=== PATIENT | male | born 1950 | race Caucasian/White ===

== ENCOUNTER 2020-02-07 15:29 | Inpatient (IN) | payer MEDICARE, OTHER ==
--- NOTE | 2020-02-07 17:44 | ED ---
General Adult HPI - General Chief complaint: Recheck/Abnormal Lab/Rx Stated complaint: swollen testicles Time Seen by Provider: 02/07/20 16:47 Source: patient Mode of arrival: wheelchair Limitations: no limitations - History of Present Illness Initial comments: Dictation was produced using [employer] dictation software. please excuse any grammatical, word or spelling errors. Chief Complaint: 69-year-old male past medical history of COPD, peripheral vascular disease and hyperlipidemia presents with swollen body. History of Present Illness: [age]old male who says for the last 2 weeks she's been having increased swelling to his legs and testicles. Patient also complains of shortness of breath. He states that he is having difficulties performing his daily activities. Patient does have a history of heart failure and COPD. Patient continues to smoke. Has history of left below-knee amputation. She also complains of some difficulties urinating. He states he has to push whenever he urinates. He feels like he is not emptying his bladder completely. The ROS documented in this emergency department record has been reviewed and confirmed by me. Those systems with pertinent positive or negative responses have been documented in the HPI. All other systems are other negative and/or noncontributory. PHYSICAL EXAM: General Impression: Alert and oriented x3, this neck HEENT: Normocephalic atraumatic, extra-ocular movements intact, pupils equal and reactive to light bilaterally, mucous membranes moist. Cardiovascular: Heart regular rate and rhythm, S1&S2 audible, no murmurs, rubs or gallops Chest: Lungs clear to auscultation bilaterally, no rhonchi, no wheeze, no rales Abdomen: Bowel sounds present, abdomen soft, non-tender, non-distended, no organomegaly, positive fluid wave Musculoskeletal: Pulses present and equal in all extremities, significant pitting edema of his right and left lower extremity, swelling to the testicles Motor: no focal deficits noted Neurological: CN II-XII grossly intact, no focal motor or sensory deficits noted Skin: Intact with no visualized rashes : Pitting edema to the testicles and penis Psych: Normal affect and mood ED course: 69-year-old male with clinical presentation consistent with heart failure exacerbation. Patient also has symptoms of urinary retention. Patient has high post-void residual. All signs upon arrival shows hypoxia 90% on room air, rest of vital signs within acceptable limits. Laboratory evaluation obtained. CBC within acceptable limits Panel unremarkable. Metabolic panel shows mild gap acidosis creatinine 2.76 with a P1 of 29. Urinalysis is likely secondary to post renal azotemia. Dixon catheter was placed by urology Dr. Hameed. Given that there was some concern of ecchymosis.. There is also findings of heart failure with prematurity peptide of 17,200. There is slight troponin elevation 0.016. Urinalysis shows 13 white blood cells. Discussed patient case with Dr. Fong is willing to accept patient's care. Given the patient has some respiratory symptoms she requested patient given Lasix despite the renal markers. She will is renal markers while admitted inpatient. Checks x-ray shows slight pleural effusion in the left hemithorax. - Related Data Home Medications Medication Instructions Recorded Confirmed Atorvastatin [Lipitor] 40 mg PO HS 01/01/15 07/05/16 Cholecalciferol [Vitamin D3] 2,000 unit PO DAILY 01/01/15 07/05/16 Clopidogrel [Plavix] 75 mg PO DAILY 01/01/15 07/05/16 Gabapentin [Neurontin] 200 mg PO QAM 01/01/15 07/05/16 HYDROcodone/APAP 10-325MG [[place] 1 each PO QID PRN 01/01/15 07/05/16 10] Lisinopril [Prinivil] 20 mg PO QAM 01/01/15 07/05/16 ALPRAZolam [Xanax] 1 mg PO BID PRN 11/25/15 07/05/16 Ibuprofen [Motrin] 600 mg PO DIRECTED PRN 02/09/16 07/05/16 Albuterol Sulfate [Proair Hfa] 1 - 2 puff INHALATION Q6HR PRN 03/08/16 07/05/16 Multivitamins, Thera [Multivitamin] 1 tab PO DAILY 03/08/16 07/05/16 Aspirin 81 mg PO DAILY 05/17/16 07/05/16 Cilostazol [Pletal] 50 mg PO BID 05/17/16 07/05/16 Metoprolol Succinate [Toprol XL] 50 mg PO DAILY 05/17/16 07/05/16 Allergies Allergy/AdvReac Type Severity Reaction Status Date / Time No Known Allergies Allergy Verified 02/07/20 15:57 Review of Systems ROS Statement: Those systems with pertinent positive or pertinent negative responses have been documented in the HPI. ROS Other: All systems not noted in ROS Statement are negative. Past Medical History Past Medical History: COPD, Hyperlipidemia, Hypertension, Vascular Disorder Additional Past Medical History / Comment(s): LT. BKA, LEFT STUMP WOUND, HYPERBARIC OXYGEN TX (X 2) WHICH CAUSED HEARING PROBLEMS- DENIES HEARING PROBLEMS NOW, HAS HAD TINNITUS FOR 20 YEARS. , PT USES W/C & WALKER. History of Any Multi-Drug Resistant Organisms: None Reported Additional Past Surgical History / Comment(s): lt leg vascular bypass surgery; L below knee amp and then revision of left bka., hx of PICC line. Past Anesthesia/Blood Transfusion Reactions: No Reported Reaction Past Psychological History: Anxiety, Depression Smoking Status: Current every day smoker Past Alcohol Use History: Daily Past Drug Use History: None Reported - Past Family History Father Family Medical History: Coronary Artery Disease (CAD) Additional Family Medical History / Comment(s): heart disease age 47 Mother Family Medical History: Hypertension Additional Family Medical History / Comment(s): still living age 82 relatively good health General Exam Limitations: no limitations Course Vital Signs 02/07/20 15:57 Temperature 97.4 F L Pulse Rate 59 L Respiratory 18 Rate Blood Pressure 122/66 O2 Sat by Pulse 90 L Oximetry Medical Decision Making - Lab Data Result diagrams: 02/07/20 17:32 02/07/20 17:32 Lab Results 02/07/20 02/07/20 02/07/20 Range/Units 17:32 17:32 17:32 WBC 8.0 (3.8-10.6) k/uL RBC 2.99 L (4.30-5.90) m/uL Hgb 8.6 L (13.0-17.5) gm/dL Hct 28.4 L (39.0-53.0) % MCV 94.9 (80.0-100.0) fL MCH 28.8 (25.0-35.0) pg MCHC 30.3 L (31.0-37.0) g/dL RDW 15.1 (11.5-15.5) % Plt Count 365 (150-450) k/uL Neutrophils % 78 % Lymphocytes % 10 % Monocytes % 8 % Eosinophils % 2 % Basophils % 0 % Neutrophils # 6.2 (1.3-7.7) k/uL Lymphocytes # 0.8 L (1.0-4.8) k/uL Monocytes # 0.6 (0-1.0) k/uL Eosinophils # 0.2 (0-0.7) k/uL Basophils # 0.0 (0-0.2) k/uL Hypochromasia Marked Poikilocytosis Slight PT 10.7 (9.0-12.0) sec INR 1.0 (<1.2) APTT 23.8 (22.0-30.0) sec Sodium (137-145) mmol/L Potassium (3.5-5.1) mmol/L Chloride (98-107) mmol/L Carbon Dioxide (22-30) mmol/L Anion Gap mmol/L BUN (9-20) mg/dL Creatinine (0.66-1.25) mg/dL Est GFR (CKD-EPI)AfAm (>60 ml/min/1.73 sqM) Est GFR (CKD-EPI)NonAf (>60 ml/min/1.73 sqM) Glucose (74-99) mg/dL Calcium (8.4-10.2) mg/dL Troponin I (0.000-0.034) ng/mL NT-Pro-B Natriuret Pep pg/mL Urine Color Light Yellow Urine Appearance Clear (Clear) Urine pH 5.5 (5.0-8.0) Ur Specific [place] 1.012 (1.001-1.035) Urine Protein Trace H (Negative) Urine Glucose (UA) Negative (Negative) Urine Ketones Negative (Negative) Urine Blood Negative (Negative) Urine Nitrite Negative (Negative) Urine Bilirubin Negative (Negative) Urine Urobilinogen <2.0 (<2.0) mg/dL Ur Leukocyte Esterase Moderate H (Negative) Urine RBC 2 (0-5) /hpf Urine WBC 13 H (0-5) /hpf Ur Squamous Epith Cells 1 (0-4) /hpf Urine Bacteria Rare H (None) /hpf Hyaline Casts 3 H (0-2) /lpf Urine Mucus Rare H (None) /hpf 02/07/20 02/07/20 02/07/20 Range/Units 17:32 17:32 17:32 WBC (3.8-10.6) k/uL RBC (4.30-5.90) m/uL Hgb (13.0-17.5) gm/dL Hct (39.0-53.0) % MCV (80.0-100.0) fL MCH (25.0-35.0) pg MCHC (31.0-37.0) g/dL RDW (11.5-15.5) % Plt Count (150-450) k/uL Neutrophils % % Lymphocytes % % Monocytes % % Eosinophils % % Basophils % % Neutrophils # (1.3-7.7) k/uL Lymphocytes # (1.0-4.8) k/uL Monocytes # (0-1.0) k/uL Eosinophils # (0-0.7) k/uL Basophils # (0-0.2) k/uL Hypochromasia Poikilocytosis PT (9.0-12.0) sec INR (<1.2) APTT (22.0-30.0) sec Sodium 140 (137-145) mmol/L Potassium 4.1 (3.5-5.1) mmol/L Chloride 110 H (98-107) mmol/L Carbon Dioxide 18 L (22-30) mmol/L Anion Gap 12 mmol/L BUN 29 H (9-20) mg/dL Creatinine 2.76 H (0.66-1.25) mg/dL Est GFR (CKD-EPI)AfAm 26 (>60 ml/min/1.73 sqM) Est GFR (CKD-EPI)NonAf 23 (>60 ml/min/1.73 sqM) Glucose 93 (74-99) mg/dL Calcium 9.2 (8.4-10.2) mg/dL Troponin I 0.016 (0.000-0.034) ng/mL NT-Pro-B Natriuret Pep 63434 pg/mL Urine Color Urine Appearance (Clear) Urine pH (5.0-8.0) Ur Specific [place] (1.001-1.035) Urine Protein (Negative) Urine Glucose (UA) (Negative) Urine Ketones (Negative) Urine Blood (Negative) Urine Nitrite (Negative) Urine Bilirubin (Negative) Urine Urobilinogen (<2.0) mg/dL Ur Leukocyte Esterase (Negative) Urine RBC (0-5) /hpf Urine WBC (0-5) /hpf Ur Squamous Epith Cells (0-4) /hpf Urine Bacteria (None) /hpf Hyaline Casts (0-2) /lpf Urine Mucus (None) /hpf Disposition Clinical Impression: Urinary retention, Acute kidney failure Disposition: ADMITTED IP TO THIS HOSP Condition: Fair Referrals: Supa Arnold MD [Primary Care Provider] - 1-2 days Decision Time: 19:06
[2020-02-07 18:02] LABS: Appearance,Urine Clear (Clear); Bacteria,Urine Rare /hpf; Bilirubin,Urine Negative (Negative); Blood,Urine Negative (Negative); Color,Urine Light Yellow; Glucose,Urine (UA) Negative (Negative); Hyaline Casts,Urine 3 /lpf (0-2); Ketones,Urine Negative (Negative); Leukocyte Esterase,Urine Moderate (Negative); Mucus,Urine Rare /hpf; Nitrite,Urine Negative (Negative); PH, Urine 5.5 (5.0-8.0); Protein,Urine Trace (Negative); RBC,Urine 2 /hpf (0-5); Specific Gravity,Urine 1.012 (1.001-1.035); Squamous Epithelial Cell,Urine 1 /hpf (0-4); Urobilinogen,Urine <2.0 mg/dL (<2.0); WBC,Urine 13 /hpf (0-5)
[2020-02-07 18:09] LABS: Partial Thromboplastin Time 23.8 sec (22.0-30.0); Prothrombin Time 10.7 sec (9.0-12.0)
[2020-02-07 18:10] LABS: Basophils % (A) 0 %; Calcium 9.2 mg/dL (8.4-10.2); Eosinophils # (A) 0.2 k/uL (0-0.7); Eosinophils % (A) 2 %; HCT 28.4 % (39.0-53.0); HGB 8.6 gm/dL (13.0-17.5); Hypochromasia Marked; Lymphocytes # (A) 0.8 k/uL (1.0-4.8); Lymphocytes % (A) 10 %; MCH 28.8 pg (25.0-35.0); MCHC 30.3 g/dL (31.0-37.0); MCV 94.9 fL (80.0-100.0); Mean Platelet Volume 7.1; Monocytes # (A) 0.6 k/uL (0-1.0); Monocytes % (A) 8 %; Neutrophils # (A) 6.2 k/uL (1.3-7.7); Neutrophils % (A) 78 %; Platelet Count 365 k/uL (150-450); Poikilocytosis Slight; Potassium 4.1 mmol/L (3.5-5.1); RBC 2.99 m/uL (4.30-5.90); RDW 15.1 % (11.5-15.5)
[2020-02-07] MEDS ORDERED: SODIUM CHLORIDE 0.9% 500 ML 500 ML IV STA (18:23)
[2020-02-07] MEDS ORDERED: FUROSEMIDE 10 MG/ML 4 ML VIAL IV STA (19:03)
[2020-02-07] MEDS ORDERED: NALOXONE 0.4 MG/ML 1 ML VIAL IV PRN (19:04)
--- NOTE | 2020-02-07 19:27 | XR ---
EXAMINATION: XR chest 2V DATE AND TIME: 02/07/2020 6:17 PM CLINICAL INDICATION: PHH; dyspnea, swollen testicles TECHNIQUE: Departmental protocol COMPARISON: None FINDINGS: The pleural spaces are positive for a moderately large left pleural effusion and a small r ight pleural effusion. The lungs are clear and well expanded, except for passive bibasilar atelectasis associated with the p leural effusions. The cardiac silhouette is borderline enlarged. The remainder of the mediastinal silhouette is unremar kable. The skeletal structures and soft tissues are negative for acute findings. IMPRESSION: 1. Moderately large left pleural effusion. 2. Small right pleural effusion
[2020-02-07] MEDS: SODIUM CHLORIDE 0.9% 1,000 ML IV SCH (19:28)
[2020-02-08] MEDS ORDERED: THIAMINE 100 MG TAB PO SCH ×2 (09:30→17:30)
[2020-02-08] MEDS: NICOTINE 14MG/24HR PATCH TRANSDERM SCH (10:02)
[2020-02-08] MEDS: HYDROcodone/APAP 10-325MG 1 EACH TAB PO PRN ×2 (10:02→19:07)
--- NOTE | 2020-02-08 10:09 | US ---
EXAMINATION TYPE: US kidneys/renal and bladder DATE OF EXAM: 02/08/2020 COMPARISON: NONE CLINICAL HISTORY: CONSUELO. No pain. Patient has bladder reynaga. Macroscopic hematuria. Exam performed portable. Patients room lights unable to turn off, pictures may appear bright and limited. EXAM MEASUREMENTS: Right Kidney: 9.5 x 4.4 x 4.9 cm Left Kidney: 9.4 x 3.8 x 4.9 cm Right Kidney: No hydronephrosis or nephrolithiasis Left Kidney: No hydronephrosis or nephrolithiasis Bladder: Reynaga seen. Limited visualization. Decompressed with bladder wall thickening likely due to the decompression. Bilateral Jets not seen due to reynaga There is no evidence for hydronephrosis at this point in time. No nephrolithiasis is seen. No marquita s are identified. The urinary bladder is nondistended due to Reynaga catheter placement. IMPRESSION: No hydronephrosis or nephrolithiasis seen. Urinary bladder is decompressed due to placeme nt of a Reynaga catheter with circumferential wall thickening that is likely due to nondistention.
--- NOTE | 2020-02-08 10:56 | P.GSCN ---
History of Present Illness Consult date: 02/07/20 Reason for Consult: Urinary retention History of present illness: Mr Rowe is 69 yo male that presents to the ED with fluid overload secondary to CHF exacerbation. Urology is consulted for urinary retention and difficulty with reynaga placement. At baseline patient denies any voiding issues. He has hx of prostate cancer currently on active surveillance. No hx of gross hematuria or dysuria. No previous episode of urinary retention. He underwent a bed side ultrasound which showed distended bladder. At this time he indicates he is not having abdominal pain secondary to bladder distension, but has not been able to void since presenting to ED . Review of Systems - Constitutional Denies chills, Denies fever, Denies weakness - EENT Ears, nose, mouth and throat: Denies dysphagia, Denies headache - Cardiovascular Reports edema, Reports leg edema, Denies chest pain - Respiratory Reports dyspnea, Denies cough - Gastrointestinal Denies abdominal pain, Denies nausea, Denies vomiting - Genitourinary Reports urinary retention, Denies dysuria, Denies flank pain, Denies kidney stones - Musculoskeletal Denies gait dysfunction, Denies low back pain - Neurological Denies confusion, Denies weakness - Psychiatric Denies confusion, Denies hallucinations - Endocrine Reports weight change Past Medical History Past Medical History: COPD, Hyperlipidemia, Hypertension, Vascular Disorder Additional Past Medical History / Comment(s): LT. BKA, LEFT STUMP WOUND, HYPERBARIC OXYGEN TX (X 2) WHICH CAUSED HEARING PROBLEMS-, HAS HAD TINNITUS FOR 20 YEARS. , PT USES W/C & WALKER. History of Any Multi-Drug Resistant Organisms: None Reported Additional Past Surgical History / Comment(s): lt leg vascular bypass surgery; L below knee amp and then revision of left bka., hx of PICC line. Past Anesthesia/Blood Transfusion Reactions: No Reported Reaction Past Psychological History: Anxiety, Depression Smoking Status: Current some day smoker Past Alcohol Use History: Daily Additional Past Alcohol Use History / Comment(s): SMOKING FOR 40 YEARS, UP TO 2PPD, QUIT FOR 6 MONTHS AND NOW SMOKES 2 CIGARETTES PER DAY. DRINKS 1-2 BEERS PER DAY. Past Drug Use History: None Reported - Past Family History Father Family Medical History: Coronary Artery Disease (CAD) Additional Family Medical History / Comment(s): heart disease age 47 Mother Family Medical History: Hypertension Additional Family Medical History / Comment(s): 4 years ago Medications and Allergies Home Medications Medication Instructions Recorded Confirmed Type Atorvastatin [Lipitor] 40 mg PO DAILY 01/01/15 02/08/20 History Cholecalciferol [Vitamin D3] 2,000 unit PO DAILY 01/01/15 02/07/20 History Gabapentin [Neurontin] 200 mg PO QAM 01/01/15 02/07/20 History HYDROcodone/APAP 10-325MG [[place] 1 tab PO QID PRN 01/01/15 02/08/20 History 10] Albuterol Sulfate [Proair Hfa] 1 - 2 puff INHALATION RT-Q6H PRN 03/08/16 02/08/20 History Multivitamins, Thera [Multivitamin] 1 tab PO DAILY 03/08/16 02/07/20 History Metoprolol Succinate [Toprol XL] 50 mg PO DAILY 05/17/16 02/07/20 History Budesonide [Pulmicort] 0.5 mg INHALATION RT-BID 02/08/20 02/08/20 History Pantoprazole [Protonix] 40 mg PO AC-BID 02/08/20 02/08/20 History Allergies Allergy/AdvReac Type Severity Reaction Status Date / Time No Known Allergies Allergy Verified 02/07/20 15:57 Surgical - Exam Vital Signs Temp Pulse Resp BP Pulse Ox 97.4 F L 59 L 18 122/66 90 L 02/07/20 15:57 02/07/20 15:57 02/07/20 15:57 02/07/20 15:57 02/07/20 15:57 - General well developed, well nourished, no distress, no pain - Eyes normal ocular movement, no pale - ENT normal mucosa, no no hearing loss - Respiratory normal expansion, normal respiratory effort - Abdomen Abdomen: soft, non tender, no distended - Psychiatric oriented to time, oriented to person, oriented to place, speech is normal Results - Labs 02/07/20 17:32 02/07/20 17:32 Abnormal Lab Results - Last 24 Hours (Table) 02/07/20 02/07/20 02/07/20 Range/Units 17:32 17:32 17:32 RBC 2.99 L (4.30-5.90) m/uL Hgb 8.6 L (13.0-17.5) gm/dL Hct 28.4 L (39.0-53.0) % MCHC 30.3 L (31.0-37.0) g/dL Lymphocytes # 0.8 L (1.0-4.8) k/uL Chloride 110 H (98-107) mmol/L Carbon Dioxide 18 L (22-30) mmol/L BUN 29 H (9-20) mg/dL Creatinine 2.76 H (0.66-1.25) mg/dL Urine Protein Trace H (Negative) Ur Leukocyte Esterase Moderate H (Negative) Urine WBC 13 H (0-5) /hpf Urine Bacteria Rare H (None) /hpf Hyaline Casts 3 H (0-2) /lpf Urine Mucus Rare H (None) /hpf Diabetes panel 02/07/20 Range/Units 17:32 Sodium 140 (137-145) mmol/L Potassium 4.1 (3.5-5.1) mmol/L Chloride 110 H (98-107) mmol/L Carbon Dioxide 18 L (22-30) mmol/L BUN 29 H (9-20) mg/dL Creatinine 2.76 H (0.66-1.25) mg/dL Glucose 93 (74-99) mg/dL Calcium 9.2 (8.4-10.2) mg/dL Calcium panel 02/07/20 Range/Units 17:32 Calcium 9.2 (8.4-10.2) mg/dL Pituitary panel 02/07/20 Range/Units 17:32 Sodium 140 (137-145) mmol/L Potassium 4.1 (3.5-5.1) mmol/L Chloride 110 H (98-107) mmol/L Carbon Dioxide 18 L (22-30) mmol/L BUN 29 H (9-20) mg/dL Creatinine 2.76 H (0.66-1.25) mg/dL Glucose 93 (74-99) mg/dL Calcium 9.2 (8.4-10.2) mg/dL Adrenal panel 02/07/20 Range/Units 17:32 Sodium 140 (137-145) mmol/L Potassium 4.1 (3.5-5.1) mmol/L Chloride 110 H (98-107) mmol/L Carbon Dioxide 18 L (22-30) mmol/L BUN 29 H (9-20) mg/dL Creatinine 2.76 H (0.66-1.25) mg/dL Glucose 93 (74-99) mg/dL Calcium 9.2 (8.4-10.2) mg/dL Assessment and Plan Assessment: 69 yo male admitted to with CHF exacerbation, urology was consulted for difficulty reynaga placement. Patient had significant scrotal swelling and tight phimosis which made reynaga placement very difficult. 16 Fr sillicone was placed with return of 3 L of clear yellow urine. Plan: -Keep reynaga in place for 14 days, can f/u as an outpatient in 2 weeks for trial of void -Start patient on flomax 0.4 mg bid, He can be discharged on flomax -Will need PSA as an outpatient given his hx of prostate cancer Time with Patient: Greater than 30 (more than 45 minutes were spent with patient given difficulty of catheter placement)
[2020-02-08] MEDS ORDERED: LORazepam 2 MG/ML INJ IV PRN ×3 (11:45)
[2020-02-08] MEDS ORDERED: THIAMINE 100 MG/ML 2 ML VIAL IM STA (11:45)
--- NOTE | 2020-02-08 11:45 | CONS ---
CONSULTATION CHIEF COMPLAINT: Increasing swelling of the legs and scrotal area and shortness of breath. Cardiology has been consulted for the pain. He denies chest pain, palpitations, syncope or focal neurological deficits. He denies any prior cardiac history. There is no history of coronary artery disease or congestive heart failure. BNP on this admission is elevated. He also has renal insufficiency. His clinical presentation is consistent with acute onset congestive heart failure. The chest x-ray shows moderate pleural effusion and patient might benefit from thoracentesis. The patient has history of peripheral vascular disease and left below-knee amputation. There is mild ulceration of the right foot. There is mild swelling of the right foot too. PAST MEDICAL HISTORY: Significant for dyslipidemia, COPD and hypertension along with peripheral vascular disease. MEDICATIONS: Medications at home include Lipitor, Protonix, Pulmicort, ProAir, Guy, Neurontin, Toprol. ALLERGIES: There are no known drug allergies. FAMILY HISTORY: Negative for premature coronary artery disease. SOCIAL HISTORY: Negative for current smoking, EtOH abuse, or drug abuse. REVIEW OF SYSTEMS: HEENT is unremarkable. CARDIAC: As described above. RESPIRATORY: As described above. GI: Negative. GENITOURINARY: Negative. ALLERGY/IMMUNOLOGY: Negative. SKIN: Negative. MUSCULOSKELETAL: Significant for arthritis and left below-knee amputation. PSYCHOSOCIAL: Negative. DERM: Negative. CONSTITUTIONAL: Negative. Rest of the system review is not relevant. PHYSICAL EXAMINATION: On exam, heart rate is 100 beats per minute. Blood pressure is 140/60. Respiratory rate is 18. O2 sat is 93%. There is no jugular venous distention. Chest exam reveals diminished air entry at the bases bilaterally. Heart exam reveals first and second heart sounds. Systolic murmur at the left lower sternal border. Abdomen is soft. There is right leg edema. Right pedal pulses are diminished. LABS: Labs show that the hemoglobin is low at 8.6, BUN is 29, creatinine is 2.7. BNP is elevated. ASSESSMENT: 1. Acute onset congestive heart failure with pleural effusions. 2. Chronic renal failure. 3. Peripheral vascular disease. 4. History of hypertension. 5. Dyslipidemia. 6. Chronic obstructive pulmonary disease. PLAN: I will give the patient Lasix 40 mg IV b.i.d. Let us consult Nephrology. Obtain a 2D echo and optimize therapies. MMODL / IJN: [id number] /
[2020-02-08 12:00] LABS: Basophils % (A) 0 %; Eosinophils # (A) 0.2 k/uL (0-0.7); Eosinophils % (A) 3 %; HGB 7.9 gm/dL (13.0-17.5); Hypochromasia Moderate; Lymphocytes # (A) 0.9 k/uL (1.0-4.8); Lymphocytes % (A) 10 %; MCH 28.1 pg (25.0-35.0); MCHC 30.3 g/dL (31.0-37.0); MCV 92.9 fL (80.0-100.0); Mean Platelet Volume 7.3; Monocytes # (A) 0.7 k/uL (0-1.0); Monocytes % (A) 9 %; Neutrophils # (A) 6.4 k/uL (1.3-7.7); Neutrophils % (A) 76 %; Platelet Count 351 k/uL (150-450); Poikilocytosis Slight; RDW 15.4 % (11.5-15.5); WBC 8.5 k/uL (3.8-10.6)
[2020-02-08] MEDS ORDERED: IPRATROPIUM-ALBUTEROL 3 ML NEB INHALATION PRN (12:06)
--- NOTE | 2020-02-08 12:22 | P.HPIM ---
History of Present Illness H&P Date: 02/08/20 Chief Complaint: Pain right foot This is a 69-year-old male patient of Dr. Arnold (he has not seen in greater than 1 year) with past medical history of hypertension, hyperlipidemia, COPD, prostate cancer, peripheral vascular disease with previous left below the knee amputation and left stump wound, right lower extremity wounds. Patient has been in the wound center under the care of Dr. Romo in the past and has undergone left leg bypass. Patient continues to smoke at least 2 cigarettes per day and he also drinks 3 beers per day. Patient was recently seen January 07 at [facility] which time he was treated for urinary tract infection and peripheral vascular disease and discharged home on Augmentin. At that time his creatinine was 2.2 and hemoglobin 8.2. He has not followed up with Dr. Arnold since discharge nor any other physician. Patient complains of pain in his right foot as well as increasing testicular swelling and increasing short ness of breath. Patient utilizes inhalers and nebulizer treatments at home. He has not home O2 dependent. Patient is normally wheelchair bound. He does not utilize prosthesis. He is under the care of Dr. Roberts for pain management. Patient came into [facility] emergency center for evaluation. Chest x-ray shows moderately large left pleural effusion. Small right pleural effusion. WBC 8.0, hemoglobin 8.6, platelet count 365. Sodium 140, potassium 4.1, chloride 110, CO2 18, BUN 29 creatinine 2.76, proBNP 17,200, troponin 0.016. Patient was seen in the ER by Dr. Hameed for urinary retention and difficulty placing Dixon catheter was placed with return of 3 L of yellow fluid. At the time of our evaluation, urine is blood tinged. Plan to keep Dixon in for 14 days and follow-up as an outpatient in 2 weeks. Patient was started on Flomax. Review of Systems Constitutional: Reports fatigue, Denies anorexia, Denies chills, Denies fever, Denies poor appetite Eyes: denies blurred vision, denies pain Ears, nose, mouth and throat: Denies dysphagia, Denies headache, Denies nasal co ngestion, Denies nasal discharge, Denies sore throat, Denies vertigo Cardiovascular: Denies chest pain, Denies decreased exercise tolerance, Denies dyspnea on exertion, Denies edema, Denies lightheadedness, Denies shortness of breath, Denies syncope Respiratory: Reports cough, Reports dyspnea, Reports wheezing, Denies excessive sputum, Denies home oxygen Gastrointestinal: Denies abdominal pain, Denies diarrhea, Denies loss of appetite, Denies nausea, Denies vomiting Genitourinary: Reports genital pain, Reports testicular pain, Reports urinary frequency, Reports urinary retention, Denies dysuria Musculoskeletal: Denies frequent falls, Denies gait dysfunction, Denies muscle weakness, Denies myalgias Integumentary: Reports wounds, Denies pruritus, Denies rash Neurological: Denies change in mentation, Denies change in speech, Denies numbness, Denies seizures, Denies weakness Psychiatric: Denies anxiety, Denies depression Endocrine: Denies fatigue, Denies weight change Past Medical History Past Medical History: COPD, Hyperlipidemia, Hypertension, Vascular Disorder Additional Past Medical History / Comment(s): LT. BKA, LEFT STUMP WOUND, HYPERBARIC OXYGEN TX (X 2) WHICH CAUSED HEARING PROBLEMS-, HAS HAD TINNITUS FOR 20 YEARS. , PT USES W/C & WALKER. History of Any Multi-Drug Resistant Organisms: None Reported Additional Past Surgical History / Comment(s): lt leg vascular bypass surgery; L below knee amp and then revision of left bka., hx of PICC line. Past Anesthesia/Blood Transfusion Reactions: No Reported Reaction Past Psychological History: Anxiety, Depression Smoking Status: Current some day smoker Past Alcohol Use History: Daily Additional Past Alcohol Use History / Comment(s): SMOKING FOR 50 YEARS, UP TO 2P PD, NOW SMOKES 2 CIGARETTES PER DAY. DRINKS 3 BEERS PER DAY. He denies any marijuana use or illicit drug use. Patient lives at home in a trailer. He is wheelchair bound. He has a prosthesis for left lower leg that he does not use. Past Drug Use History: None Reported - Past Family History Father Family Medical History: Coronary Artery Disease (CAD) Additional Family Medical History / Comment(s): Father heart disease age 47 from myocardial infarction. Mother Family Medical History: Hypertension Additional Family Medical History / Comment(s): Mother at age 82 from myocardial infarction. Brother(s) Additional Family Medical History / Comment(s): Patient has 5 brothers all living, some have hypertension. Sister(s) Additional Family Medical History / Comment(s): Patient has one sister and no major medical problems. Patient has one daughter living in [place] with no major medical problems. Medications and Allergies Home Medications Medication Instructions Recorded Confirmed Type Atorvastatin [Lipitor] 40 mg PO DAILY 01/01/15 02/08/20 History Cholecalciferol [Vitamin D3] 2,000 unit PO DAILY 01/01/15 02/07/20 History Gabapentin [Neurontin] 200 mg PO QAM 01/01/15 02/07/20 History HYDROcodone/APAP 10-325MG [Chunky 1 tab PO QID PRN 01/01/15 02/08/20 History 10] Albuterol Sulfate [Proair Hfa] 1 - 2 puff INHALATION RT-Q6H PRN 03/08/16 02/08/20 History Multivitamins, Thera [Multivitamin] 1 tab PO DAILY 03/08/16 02/07/20 History Metoprolol Succinate [Toprol XL] 50 mg PO DAILY 05/17/16 02/07/20 History Budesonide [Pulmicort] 0.5 mg INHALATION RT-BID 02/08/20 02/08/20 History Pantoprazole [Protonix] 40 mg PO AC-BID 02/08/20 02/08/20 History Allergies Allergy/AdvReac Type Severity Reaction Status Date / Time No Known Allergies Allergy Verified 02/07/20 15:57 Physical Exam Vitals: Vital Signs Temp Pulse Pulse Resp BP BP BP 02/08/20 04:30 98.3 F 121 H 22 144/68 02/07/20 23:37 109 H 02/07/20 20:31 97.8 F 105 H 22 164/88 02/07/20 20:00 169/94 02/07/20 19:32 97.6 F 108 H 18 169/94 02/07/20 19:30 159/99 02/07/20 19:00 101 H 18 165/100 02/07/20 18:30 99 20 157/98 02/07/20 18:00 106 H 20 176/100 02/07/20 15:57 97.4 F L 59 L 18 122/66 Pulse Ox 02/08/20 04:30 93 L 02/07/20 23:37 02/07/20 20:31 02/07/20 20:00 94 L 02/07/20 19:32 96 02/07/20 19:30 95 02/07/20 19:00 96 02/07/20 18:30 96 02/07/20 18:00 95 02/07/20 15:57 90 L Intake and Output 02/07/20 02/08/20 02/08/20 22:59 06:59 14:59 Intake Total 200 Output Total 1999 1899 Balance -1999 -170 Intake: Oral 200 Output: Urine 1999 1899 Uretheral (Dixon) 1999 1450 Other: Voiding Method Indwelling Catheter # Bowel Movements 0 Weight 77.111 kg Gen: This is a 69-year-old male. He is in bed and appears to be anxious and angry. HEENT: Head is atraumatic, normocephalic. Pupils equal, round. Sclerae is anicteric. NECK: Supple. No JVD. No lymphadenopathy. No thyromegaly. LUNGS: Expiratory wheezing, diminished in the bases. No intercostal retractions. HEART: Regular rate and rhythm. No murmur. ABDOMEN: Soft. Bowel sounds are present. No masses. No tenderness. Patient has significant scrotal edema. Dixon catheter draining bloody urine. EXTREMITIES: Left below the knee amputation with a scab at the stump. Right lower extremity has multiple vascular ulcers: 2 x 3.5 at the right dorsal foot distal fifth metatarsal, dry. Right great toe 2 x 2 with small amount of drainage. Lateral right great toe wound moist minimal drainage. 2 wounds on the pretibial area 1.5 x 1.5 and 3 x 2. Lateral wounds 5 cm x 1.5 and 3 x 2 cm. NEUROLOGICAL: Patient is awake, alert and oriented x3. Cranial nerves 2 through 12 are grossly intact. Results CBC & Chem 7: 02/07/20 17:32 02/07/20 17:32 Labs: Abnormal Lab Results - Last 24 Hours (Table) 02/07/20 02/07/20 02/07/20 Range/Units 17:32 17:32 17:32 RBC 2.99 L (4.30-5.90) m/uL Hgb 8.6 L (13.0-17.5) gm/dL Hct 28.4 L (39.0-53.0) % MCHC 30.3 L (31.0-37.0) g/dL Lymphocytes # 0.8 L (1.0-4.8) k/uL Chloride 110 H (98-107) mmol/L Carbon Dioxide 18 L (22-30) mmol/L BUN 29 H (9-20) mg/dL Creatinine 2.76 H (0.66-1.25) mg/dL Urine Protein Trace H (Negative) Ur Leukocyte Esterase Moderate H (Negative) Urine WBC 13 H (0-5) /hpf Urine Bacteria Rare H (None) /hpf Hyaline Casts 3 H (0-2) /lpf Urine Mucus Rare H (None) /hpf Thrombosis Risk Factor Assmnt - DVT/VTE Prophylaxis DVT/VTE Prophylaxis: Pharmacologic Prophylaxis ordered - Choose All That Apply Any of the Below Risk Factors Present?: Yes Each Factor Represents 1 point: Abnormal pulmonary function (COPD) Each Risk Factor Represents 2 Points: Age 61-74 years Thrombosis Risk Factor Assessment Total Risk Factor Score: 3 Thrombosis Risk Factor Assessment Level: Moderate Risk Assessment and Plan Plan: 1. Right lower extremity vascular ulcers secondary peripheral vascular disease. Patient has been under the care of Dr. Romo in the past. Consult with Dr. Romo. Rocephin 2 g every 24 hours, blood cultures. 2. Difficulty breathing, without acute respiratory failure, secondary to COPD exacerbation and acute heart failure with bilateral pleural effusions left worse than right. Lasix 40 mg IV every 12 hours, cardiology consult appreciated, echocardiogram ordered. 3. Peripheral vascular disease status post left below the knee amputation. 4. Urinary retention with hematuria and significant scrotal edema. Consult with urology appreciated. Continue Flomax or 0.5 mg twice daily. Patient to keep Dixon catheter for 14 days and follow-up in the office. PSA will be checked at that time. 5. Acute kidney injury with baseline creatinine of 2.2. Monitor renal function. 6. Chronic kidney disease stage, probable stage IIIB or 4. 7. Urinary tract infection. Urine culture to be obtained, Rocephin. 8. Tobacco use and dependence. Nicotine patch. 9. Alcohol abuse. CIWA protocol, thiamine daily and multivitamin. 10. Chronic pain syndrome under the care of Dr. Roberts. Continue Chunky as needed. 11. History of prostate cancer. Follow up with urology. 12. DVT prophylaxis. Heparin subcu. 13. Gastroesophageal reflux disease and GI prophylaxis. Protonix. Patient will be admitted to the hospital for a minimum of 2 night stay. Discharge plan: return home Impression and plan of care have been directed as dictated by the signing physician. Shannan Ashby nurse practitioner acting as scribe for signing phys ician.
[2020-02-08] MEDS: FUROSEMIDE 10 MG/ML 4 ML VIAL IV SCH ×2 (12:35→21:01)
[2020-02-08] MEDS: methylPREDNISolone SOD SUCCI 125 MG/2 ML VIAL IV SCH ×2 (13:13→18:07)
--- NOTE | 2020-02-08 16:18 | CONS ---
CONSULTATION Mr. Rowe is known to me from the past. The patient has a history of severe peripheral vascular disease. The patient had a left below-knee amputation done in [place]. Also the patient had some vascular bypass in that leg. The patient has been admitted with some urological problem and is complaining of chest discomfort and shortness of breath. The patient also is noted to have some swelling of his leg and testicles. The patient also complains of shortness of breath. He has a history of heart failure and COPD. He has also been complaining of pain in his left stump because of a superficial ulcer and also he has some superficial ulcer on his right lower extremity. Personal history reveals that he has a history of smoking and continues to smoke. PAST MEDICAL HISTORY: History of COPD, hypertension, peripheral vascular disease, post left below-knee amputation. PHYSICAL EXAMINATION: The patient was seen in his room. Neck is supple. Chest has crackles bilaterally. Abdomen is soft. Right femoral is 1+. PT, DP not palpable. Patient has some superficial ulcer on the dorsal aspect of the foot and anterior aspect of the right lower extremity. The patient had some work done by Urology. He has a Dixon catheter. PLAN: At this point, the patient has chronic peripheral vascular disease with some superficial ulcers. When the patient is stable, we will follow him in my office. At this point, we will continue with local wound care of the superficial ulcer on the right foot. We will follow with you. JAMES / RAY: [id number] /
[2020-02-08] MEDS: IPRATROPIUM-ALBUTEROL 3 ML NEB INHALATION SCH ×2 (16:31→20:10)
[2020-02-08 17:31] LABS: Glucose,Whole Blood 162 mg/dL (75-99)
[2020-02-08] MEDS: PANTOPRAZOLE 40 MG TABLET PO SCH (18:05)
[2020-02-08] MEDS: INSULIN ASPART (NovoLOG) 100 UNIT/ML VIAL SQ SCH ×2 (18:05→22:28)
[2020-02-08] MEDS: BUDESONIDE 0.5 MG/2 ML NEBU INHALATION SCH (20:10)
[2020-02-08 20:43] LABS: Basophils % (A) 0 %; Eosinophils % (A) 0 %; HCT 28.2 % (39.0-53.0); HGB 8.7 gm/dL (13.0-17.5); Hypochromasia Marked; Lymphocytes # (A) 0.3 k/uL (1.0-4.8); Lymphocytes % (A) 3 %; MCH 28.8 pg (25.0-35.0); MCHC 30.8 g/dL (31.0-37.0); MCV 93.5 fL (80.0-100.0); Mean Platelet Volume 7.2; Monocytes # (A) 0.2 k/uL (0-1.0); Monocytes % (A) 2 %; Neutrophils # (A) 8.9 k/uL (1.3-7.7); Neutrophils % (A) 95 %; Platelet Count 370 k/uL (150-450); RBC 3.01 m/uL (4.30-5.90); RDW 15.3 % (11.5-15.5); WBC 9.4 k/uL (3.8-10.6)
[2020-02-08] MEDS: TAMSULOSIN 0.4 MG CAP.ER.24H PO SCH (21:01)
[2020-02-08] MEDS: HEPARIN SODIUM,PORCINE 5,000 UNIT/ML 1 ML VIAL SQ SCH (21:01)
[2020-02-08] MEDS: SODIUM CHLORIDE 0.9% 1,000 ML IV SCH (21:02)
[2020-02-08 22:28] LABS: Glucose,Whole Blood 208 mg/dL (75-99)
[2020-02-09] MEDS: methylPREDNISolone SOD SUCCI 125 MG/2 ML VIAL IV SCH ×3 (01:48→12:00)
[2020-02-09 07:29] LABS: Glucose,Whole Blood 241 mg/dL (75-99)
--- NOTE | 2020-02-09 08:03 | ECHOF ---
Referral Reason:sob MEASUREMENTS -------- HEIGHT: 182.9 cm WEIGHT: 77.1 kg BP: 144/68 RVIDd: 4.6 cm (< 3.3) IVSd: 1.5 cm (0.6 - 1.1) LVIDd: 4.2 cm (3.9 - 5.3) LVPWd: 1.5 cm (0.6 - 1.1) IVSs: 2.0 cm LVIDs: 2.5 cm LVPWs: 1.7 cm LAESV Index (A-L): 38.52 ml/m Ao Diam: 3.8 cm (2.0 - 3.7) AV Cusp: 1.7 cm (1.5 - 2.6) MV EXCURSION: 19.135 mm (> 18.000) MV EF SLOPE: 57 mm/s (70 - 150) EPSS: 0.8 cm MV E David: 1.17 m/s MV DecT: 113 ms MV A David: 1.33 m/s MV E/A Ratio: 0.88 RAP: 5.00 mmHg RVSP: 59.22 mmHg FINDINGS -------- Resting tachycardia (HR>100bpm). This was a technically adequate study. The left ventricular size is normal. There is moderate concentric left ventricular hypertrophy. O verall left ventricular systolic function is normal with, an EF between 55 - 60 %. Increased Lap Gr bryan II Diastolic Dysfunction. The right ventricle is moderate to severely enlarged. LA is moderately dilated 34-39 ml/m2 The right atrium is mildly enlarged. Interatrial and interventricular septum intact. The aortic valve is trileaflet and appears structurally normal. There is mild aortic valve sclerosi s. There is no evidence of aortic regurgitation. There is no evidence of aortic stenosis. Mild mitral regurgitation is present. Moderate to severe tricuspid regurgitation present. There is moderate to severe pulmonary hypertens ion. The right ventricular systolic pressure, as measured by Doppler, is 59.22mmHg. There is no pulmonic regurgitation present. The aortic root size is normal. IVC Not well visulized. There is no pericardial effusion. CONCLUSIONS -------- 1. Resting tachycardia (HR>100bpm). 2. This was a technically adequate study. 3. The left ventricular size is normal. 4. There is moderate concentric left ventricular hypertrophy. 5. Overall left ventricular systolic function is normal with, an EF between 55 - 60 %. 6. Increased Lap Grade II Diastolic Dysfunction. 7. The right ventricle is moderate to severely enlarged. 8. LA is moderately dilated 34-39 ml/m2 9. The right atrium is mildly enlarged. 10. Interatrial and interventricular septum intact. 11. The aortic valve is trileaflet and appears structurally normal. 12. There is mild aortic valve sclerosis. 13. There is no evidence of aortic regurgitation. 14. There is no evidence of aortic stenosis. 15. Mild mitral regurgitation is present. 16. Moderate to severe tricuspid regurgitation present. 17. There is moderate to severe pulmonary hypertension. 18. The right ventricular systolic pressure, as measured by Doppler, is 59.22mmHg. 19. There is no pulmonic regurgitation present. 20. The aortic root size is normal. 21. IVC Not well visulized. 22. There is no pericardial effusion. VP PROJECT: Caterina Chavez RDCS
[2020-02-09 08:43] LABS: HCT 28.4 % (39.0-53.0); HGB 8.7 gm/dL (13.0-17.5); Hypochromasia Moderate; MCH 28.4 pg (25.0-35.0); MCHC 30.4 g/dL (31.0-37.0); MCV 93.4 fL (80.0-100.0); Mean Platelet Volume 7.3; Platelet Count 344 k/uL (150-450); RBC 3.04 m/uL (4.30-5.90); RDW 15.3 % (11.5-15.5); WBC 9.3 k/uL (3.8-10.6)
[2020-02-09] MEDS: BUDESONIDE 0.5 MG/2 ML NEBU INHALATION SCH ×2 (08:44→21:33)
[2020-02-09] MEDS: IPRATROPIUM-ALBUTEROL 3 ML NEB INHALATION SCH ×3 (08:44→21:33)
[2020-02-09] MEDS: FUROSEMIDE 10 MG/ML 4 ML VIAL IV SCH ×2 (08:46→21:16)
[2020-02-09] MEDS: HYDROcodone/APAP 10-325MG 1 EACH TAB PO PRN ×2 (08:46→17:19)
[2020-02-09] MEDS: CHOLECALCIFEROL 1,000 UNIT TAB PO SCH (08:46)
[2020-02-09] MEDS: HEPARIN SODIUM,PORCINE 5,000 UNIT/ML 1 ML VIAL SQ SCH ×2 (08:46→21:16)
[2020-02-09] MEDS: PANTOPRAZOLE 40 MG TABLET PO SCH ×2 (08:46→17:22)
[2020-02-09] MEDS: ATORVASTATIN 40 MG TAB PO SCH (08:46)
[2020-02-09] MEDS: GABAPENTIN 100 MG CAP PO SCH (08:46)
[2020-02-09] MEDS: TAMSULOSIN 0.4 MG CAP.ER.24H PO SCH ×2 (08:46→21:16)
[2020-02-09] MEDS: MULTIVITAMINS, THERA 1 EACH TAB PO SCH (08:46)
[2020-02-09] MEDS: NICOTINE 14MG/24HR PATCH TRANSDERM SCH (08:47)
[2020-02-09] MEDS: INSULIN ASPART (NovoLOG) 100 UNIT/ML VIAL SQ SCH ×4 (08:47→22:07)
[2020-02-09 08:59] LABS: Albumin 3.3 g/dL (3.5-5.0); Potassium 3.5 mmol/L (3.5-5.1); Total Bilirubin 0.3 mg/dL (0.2-1.3); Total Protein 6.5 g/dL (6.3-8.2)
[2020-02-09] MEDS ORDERED: METOPROLOL SUCCINATE (ER) 50 MG TAB.ER.24H PO SCH (09:00)
[2020-02-09] MEDS ORDERED: METOPROLOL SUCCINATE (ER) 50 MG TAB.ER.24H PO STA (09:19)
--- NOTE | 2020-02-09 11:15 | P.PN ---
Subjective Progress Note Date: 02/09/20 This is a 69-year-old male patient of Dr. Arnold (he has not seen in greater than 1 year) with past medical history of hypertension, hyperlipidemia, COPD, prostate cancer, peripheral vascular disease with previous left below the knee amputation and left stump wound, right lower extremity wounds. Patient has been in the wound center under the care of Dr. Romo in the past and has undergone left leg bypass. Patient continues to smoke at least 2 cigarettes per day and he also drinks 3 beers per day. Patient was recently seen January 07 at [facility] which time he was treated for urinary tract infection and peripheral vascular disease and discharged home on Augmentin. At that time his creatinine was 2.2 and hemoglobin 8.2. He has not followed up with Dr. Arnold since discharge nor any other physician. Patient complains of pain in his right foot as well as increasing testicular swelling and increasing shortness of breath. Patient utilizes inhalers and nebulizer treatments at home. He has not home O2 dependent. Patient is normally wheelchair bound. He does not utilize prosthesis. He is under the care of Dr. Roberts for pain management. Patient came into [facility] emergency center for evaluation. Chest x-ray shows moderately large left pleural effusion. Small right pleural effusion. WBC 8.0, hemoglobin 8.6, platelet count 365. Sodium 140, potassium 4.1, chloride 110, CO2 18, BUN 29 creatinine 2.76, proBNP 17,200, troponin 0.016. Patient was seen in the ER by Dr. Hameed for urinary retention and difficulty placing Dixon catheter was placed with return of 3 L of yellow fluid. At the time of our evaluation, urine is blood tinged. Plan to keep Dixon in for 14 days and follow-up as an outpatient in 2 weeks. Patient was started on Flomax. 02/09/2020: Patient is resting sitting up in bed. In no acute distress. Patient continues to be on O2 via nasal cannula 2 L pulse oxing 97%, heart rate 124, blood pressure 154/52 remains afebrile. Patient continues to have an indwelling catheter in place related to retention. Continues to have 2+ pitting edema. Patient states that he is feeling better and having less shortness of breath. WC 9.3, hemoglobin 8.7, potassium 3.5, BUN 26, creatinine 2.42,. Patient is followed by Dr. Romo in the outpatient for chronic peripheral vascular disease with some superficial ulcerations. Local wound care is performed to the superficial ulceration to the right foot. The plan is have him continue to follow with Dr. Romo in his office. Review of Systems Constitutional: Reports fatigue, Denies anorexia, Denies chills, Denies fever, Denies poor appetite Eyes: denies blurred vision, denies pain Ears, nose, mouth and throat: Denies dysphagia, Denies headache, Denies nasal congestion, Denies nasal discharge, Denies sore throat, Denies vertigo Cardiovascular: Denies chest pain, Denies decreased exercise tolerance, Denies dyspnea on exertion, Denies edema, Denies lightheadedness, Denies shortness of breath, Denies syncope Respiratory: Reports cough, Reports dyspnea, Reports wheezing, Denies excessive sputum, Denies home oxygen Gastrointestinal: Denies abdominal pain, Denies diarrhea, Denies loss of appetite, Denies nausea, Denies vomiting Genitourinary: Reports genital pain, Reports testicular pain, Reports urinary frequency, Reports urinary retention, Denies dysuria Musculoskeletal: Denies frequent falls, Denies gait dysfunction, Denies muscle weakness, Denies myalgias Integumentary: Reports wounds, Denies pruritus, Denies rash Neurological: Denies change in mentation, Denies change in speech, Denies numbness, Denies seizures, Denies weakness Psychiatric: Denies anxiety, Denies depression Endocrine: Denies fatigue, Denies weight change Objective - Vital Signs Vital signs: Vital Signs Temp 97.2 F L 02/09/20 06:02 Pulse 124 H 02/09/20 06:02 Resp 17 02/09/20 06:02 BP 154/52 02/09/20 06:02 Pulse Ox 97 02/09/20 06:02 Intake & Output 02/08/20 02/09/20 02/09/20 18:59 06:59 18:59 Intake Total 540 Output Total 6050 Balance 540 -6050 Intake: Oral 540 Output: Urine 6050 Other: Voiding Method Indwelling Catheter # Voids 2 # Bowel Movements 1 - Exam Gen: This is a 69-year-old male. He is in bed and appears to be anxious and angry. HEENT: Head is atraumatic, normocephalic. Pupils equal, round. Sclerae is anicteric. NECK: Supple. No JVD. No lymphadenopathy. No thyromegaly. LUNGS: Expiratory wheezing, diminished in the bases. No intercostal retractions. HEART: Regular rate and rhythm. No murmur. ABDOMEN: Soft. Bowel sounds are present. No masses. No tenderness. Patient has significant scrotal edema. Dixon catheter draining bloody urine. EXTREMITIES: Left below the knee amputation with a scab at the stump. Right lower extremity has multiple vascular ulcers: 2 x 3.5 at the right dorsal foot distal fifth metatarsal, dry. Right great toe 2 x 2 with small amount of drainage. Lateral right great toe wound moist minimal drainage. 2 wounds on the pretibial area 1.5 x 1.5 and 3 x 2. Lateral wounds 5 cm x 1.5 and 3 x 2 cm. NEUROLOGICAL: Patient is awake, alert and oriented x3. Cranial nerves 2 through 12 are grossly intact. - Labs CBC & Chem 7: 02/09/20 07:51 02/09/20 07:51 Labs: Abnormal Lab Results - Last 24 Hours (Table) 02/08/20 02/08/20 02/08/20 Range/Units 11:41 17:28 20:16 RBC 2.80 L 3.01 L (4.30-5.90) m/uL Hgb 7.9 L 8.7 L (13.0-17.5) gm/dL Hct 26.0 L 28.2 L (39.0-53.0) % MCHC 30.3 L 30.8 L (31.0-37.0) g/dL Neutrophils # 8.9 H (1.3-7.7) k/uL Lymphocytes # 0.9 L 0.3 L (1.0-4.8) k/uL Carbon Dioxide (22-30) mmol/L BUN (9-20) mg/dL Creatinine (0.66-1.25) mg/dL Glucose (74-99) mg/dL POC Glucose (mg/dL) 162 H (75-99) mg/dL Albumin (3.5-5.0) g/dL 02/08/20 02/09/20 02/09/20 Range/Units 22:22 07:25 07:51 RBC 3.04 L (4.30-5.90) m/uL Hgb 8.7 L (13.0-17.5) gm/dL Hct 28.4 L (39.0-53.0) % MCHC 30.4 L (31.0-37.0) g/dL Neutrophils # (1.3-7.7) k/uL Lymphocytes # (1.0-4.8) k/uL Carbon Dioxide (22-30) mmol/L BUN (9-20) mg/dL Creatinine (0.66-1.25) mg/dL Glucose (74-99) mg/dL POC Glucose (mg/dL) 208 H 241 H (75-99) mg/dL Albumin (3.5-5.0) g/dL 02/09/20 Range/Units 07:51 RBC (4.30-5.90) m/uL Hgb (13.0-17.5) gm/dL Hct (39.0-53.0) % MCHC (31.0-37.0) g/dL Neutrophils # (1.3-7.7) k/uL Lymphocytes # (1.0-4.8) k/uL Carbon Dioxide 32 H (22-30) mmol/L BUN 26 H (9-20) mg/dL Creatinine 2.42 H (0.66-1.25) mg/dL Glucose 193 H (74-99) mg/dL POC Glucose (mg/dL) (75-99) mg/dL Albumin 3.3 L (3.5-5.0) g/dL Microbiology - Last 24 Hours (Table) 02/08/20 12:30 Gram Stain - Preliminary Leg - Right Wound Culture - Preliminary 02/08/20 12:25 Urine Culture - Preliminary Urine,Clean Catch 02/08/20 12:30 Anaerobic Culture - Preliminary Leg - Right Assessment and Plan Plan: 1. Right lower extremity vascular ulcers secondary peripheral vascular disease. Patient has been under the care of Dr. Romo in the past. Dr. Romo consult reviewed. Rocephin 2 g every 24 hours, blood cultures. 2. Difficulty breathing, without acute respiratory failure, secondary to COPD exacerbation and acute heart failure with bilateral pleural effusions left worse than right. Lasix 40 mg IV every 12 hours, cardiology consult appreciated, echocardiogram results: Moderate concentric left ventricular atrophy, EF between 55 and 60%, moderate to severe tricuspid regurgitation, moderate to severe pulmonary hypertension. Solu-Medrol 40 mg every 8 hours IV. Repeat chest x-ray in the morning 3. Peripheral vascular disease status post left below the knee amputation. 4. Urinary retention with hematuria and significant scrotal edema. Consult with urology appreciated. Continue Flomax or 0.5 mg twice daily. Patient to keep Dixon catheter for 14 days and follow-up in the office. PSA will be checked at that time. 5. Acute kidney injury with baseline creatinine of 2.2. Monitor renal function. 6. Chronic kidney disease stage, probable stage IIIB or 4. 7. Urinary tract infection. Urine culture to be obtained, Rocephin. 8. Tobacco use and dependence. Nicotine patch. 9. Alcohol abuse. CIWA protocol, thiamine daily and multivitamin. 10. Chronic pain syndrome under the care of Dr. Roberts. Continue [place] as needed. 11. History of prostate cancer. Follow up with urology. 12. DVT prophylaxis. Heparin subcu. 13. Gastroesophageal reflux disease and GI prophylaxis. Protonix. Patient will be admitted to the hospital for a minimum of 2 night stay. Discharge plan: return home Impression and plan of care have been directed as dictated by the signing physician. Connie aBnuelos nurse practitioner acting as scribe for signing physician. Additional CC's: Supa Arnold
[2020-02-09 11:27] LABS: Glucose,Whole Blood 271 mg/dL (75-99)
--- NOTE | 2020-02-09 12:51 | PN ---
PROGRESS NOTE Ashkan is a 69-year-old gentleman who was admitted to hospital with peripheral vascular insufficiency and fluid overload. An echocardiogram on him shows that he has normal LV function. His congestive heart failure seems to be diastolic heart failure. The patient is putting out urine well. His leg edema has resolved. He is somewhat tachycardic. He has sinus tachycardia. Blood pressure is also elevated. On exam, heart rate is 120 beats per minute. Blood pressure is 154/50, respiratory rate 18. Chest exam reveals diminished air entry at the bases. Heart exam reveals first and second heart sounds, systolic murmur at the left lower sternal border. Examination of extremities reveals left below-knee amputation, and the right foot pulses are diminished. There is mild cellulitis. Labs show that his BUN is 26, creatinine is 2.4, hemoglobin is 8.7. ASSESSMENT: 1. Acute onset diastolic heart failure. 2. Peripheral vascular insufficiency. 3. Chronic obstructive pulmonary disease. 4. Pulmonary hypertension. I reviewed echo findings with him and will continue with the IV Lasix. I will increase the dose of metoprolol to 100 mg daily. MMODL / IJN: [id number] /
[2020-02-09 16:39] LABS: Glucose,Whole Blood 152 mg/dL (75-99)
[2020-02-09] MEDS: methylPREDNISolone SOD SUCCI 40 MG/ML 1 ML VIAL IV SCH (17:22)
[2020-02-09] MEDS: SODIUM CHLORIDE 0.9% 1,000 ML IV SCH (19:18)
[2020-02-09 22:08] LABS: Glucose,Whole Blood 199 mg/dL (75-99)
[2020-02-10] MEDS: HYDROcodone/APAP 10-325MG 1 EACH TAB PO PRN ×3 (00:12→17:16)
[2020-02-10] MEDS: methylPREDNISolone SOD SUCCI 40 MG/ML 1 ML VIAL IV SCH ×2 (00:13→08:49)
[2020-02-10 05:44] LABS: Basophils % (A) 0 %; Eosinophils % (A) 0 %; HCT 27.2 % (39.0-53.0); HGB 8.5 gm/dL (13.0-17.5); Hypochromasia Moderate; Lymphocytes # (A) 0.6 k/uL (1.0-4.8); Lymphocytes % (A) 4 %; MCH 28.3 pg (25.0-35.0); MCHC 31.3 g/dL (31.0-37.0); MCV 90.3 fL (80.0-100.0); Mean Platelet Volume 8.3; Monocytes # (A) 0.3 k/uL (0-1.0); Monocytes % (A) 3 %; Neutrophils # (A) 12.1 k/uL (1.3-7.7); Neutrophils % (A) 93 %; Platelet Count 321 k/uL (150-450); Poikilocytosis Slight; RBC 3.01 m/uL (4.30-5.90); RDW 15.3 % (11.5-15.5)
[2020-02-10 05:54] LABS: Calcium 7.7 mg/dL (8.4-10.2)
[2020-02-10 05:56] LABS: Potassium 2.7 mmol/L (3.5-5.1)
[2020-02-10] MEDS: POTASSIUM CHLORIDE ER 20 MEQ TAB.ER PO SCH ×5 (06:32→19:03)
[2020-02-10 07:05] LABS: Glucose,Whole Blood 167 mg/dL (75-99)
[2020-02-10] MEDS: INSULIN ASPART (NovoLOG) 100 UNIT/ML VIAL SQ SCH ×4 (07:56→21:13)
[2020-02-10] MEDS ORDERED: POTASSIUM CHLORIDE ER 20 MEQ TAB.ER PO SCH (08:00)
[2020-02-10] MEDS: BUDESONIDE 0.5 MG/2 ML NEBU INHALATION SCH ×2 (08:33→19:50)
[2020-02-10] MEDS: IPRATROPIUM-ALBUTEROL 3 ML NEB INHALATION SCH ×3 (08:33→19:50)
[2020-02-10] MEDS: ATORVASTATIN 40 MG TAB PO SCH (08:49)
[2020-02-10] MEDS: NICOTINE 14MG/24HR PATCH TRANSDERM SCH (08:49)
[2020-02-10] MEDS: GABAPENTIN 100 MG CAP PO SCH (08:49)
[2020-02-10] MEDS: CHOLECALCIFEROL 1,000 UNIT TAB PO SCH (08:49)
[2020-02-10] MEDS: PANTOPRAZOLE 40 MG TABLET PO SCH ×2 (08:50→17:12)
[2020-02-10] MEDS: TAMSULOSIN 0.4 MG CAP.ER.24H PO SCH ×2 (08:50→21:13)
[2020-02-10] MEDS: HEPARIN SODIUM,PORCINE 5,000 UNIT/ML 1 ML VIAL SQ SCH ×2 (08:51→21:13)
[2020-02-10] MEDS: MULTIVITAMINS, THERA 1 EACH TAB PO SCH (08:51)
[2020-02-10] MEDS: METOPROLOL SUCCINATE (ER) 100 MG TAB.ER.24H PO SCH (08:51)
[2020-02-10] MEDS: FUROSEMIDE 40 MG TAB PO SCH ×2 (08:53→17:12)
--- NOTE | 2020-02-10 09:33 | XR ---
EXAMINATION TYPE: XR chest 2V DATE OF EXAM: 02/10/2020 COMPARISON: 02/07/2020 TECHNIQUE: PA and lateral views submitted. HISTORY: Shortness of breath FINDINGS: There is left lower lobe infiltrate and small bilateral effusion. The heart is stable. Underlying [employer] D noted. Arthropathy of the shoulders. Degenerative change of the spine. Hyperinflation suggests COPD . IMPRESSION: 1. Stable bilateral infiltrate and small effusion. 2. In the lateral view there suggestion of a 1.4 cm retrosternal nodule. This was not seen on the rec ent chest x-ray and could be related to superimposed structures. Recommend follow-up PA and lateral v iews chest on short-term basis.
[2020-02-10] MEDS: predniSONE 20 MG TAB PO SCH (10:57)
--- NOTE | 2020-02-10 10:57 | CONS ---
CONSULTATION This is a 69-year-old gentleman who is admitted to the hospital with fluid overload and cellulitis and ulceration of the right foot. He is feeling better, has had good urine output with IV Lasix. EXAM: Rate is 100 beats per minute. Blood pressure 120/59, respiratory rate 18. Chest exam reveals improved air entry bilaterally. Heart exam reveals first and second heart sounds. No gallop. Exam of extremities reveals left below-knee amputation. Right foot shows ulceration and diminished pulses. ASSESSMENT: 1. Acute onset diastolic heart failure. 2. Peripheral vascular insufficiency. 3. Sinus tachycardia. 4. Pulmonary hypertension. 5. Peripheral vascular disease. PLAN: I am going to continue the beta blockers. Change the Lasix to p.o. and CAD and ulceration issues are being addressed by vascular surgeon. JAMES / JUANN: [id number] /
[2020-02-10] MEDS ORDERED: Potassium Replacement Protocol 1 EACH MISC MISCELLANE PRN (11:41)
[2020-02-10 11:42] LABS: Glucose,Whole Blood 204 mg/dL (75-99)
--- NOTE | 2020-02-10 11:44 | P.PN ---
Subjective Progress Note Date: 02/10/20 This is a 69-year-old male patient of Dr. Arnold (he has not seen in greater than 1 year) with past medical history of hypertension, hyperlipidemia, COPD, prostate cancer, peripheral vascular disease with previous left below the knee amputation and left stump wound, right lower extremity wounds. Patient has been in the wound center under the care of Dr. Romo in the past and has undergone left leg bypass. Patient continues to smoke at least 2 cigarettes per day and he also drinks 3 beers per day. Patient was recently seen January 07 at [facility] which time he was treated for urinary tract infection and peripheral vascular disease and discharged home on Augmentin. At that time his creatinine was 2.2 and hemoglobin 8.2. He has not followed up with Dr. Arnold since discharge nor any other physician. Patient complains of pain in his right foot as well as increasing testicular swelling and increasing shortness of breath. Patient utilizes inhalers and nebulizer treatments at home. He has not home O2 dependent. Patient is normally wheelchair bound. He does not utilize prosthesis. He is under the care of Dr. Roberts for pain management. Patient came into [facility] emergency center for evaluation. Chest x-ray shows moderately large left pleural effusion. Small right pleural effusion. WBC 8.0, hemoglobin 8.6, platelet count 365. Sodium 140, potassium 4.1, chloride 110, CO2 18, BUN 29 creatinine 2.76, proBNP 17,200, troponin 0.016. Patient was seen in the ER by Dr. Hameed for urinary retention and difficulty placing Dixon catheter was placed with return of 3 L of yellow fluid. At the time of our evaluation, urine is blood tinged. Plan to keep Dixon in for 14 days and follow-up as an outpatient in 2 weeks. Patient was started on Flomax. 02/09/2020: Patient is resting sitting up in bed. In no acute distress. Patient continues to be on O2 via nasal cannula 2 L pulse oxing 97%, heart rate 124, blood pressure 154/52 remains afebrile. Patient continues to have an indwelling catheter in place related to retention. Continues to have 2+ pitting edema. Patient states that he is feeling better and having less shortness of breath. WC 9.3, hemoglobin 8.7, potassium 3.5, BUN 26, creatinine 2.42,. Patient is followed by Dr. Romo in the outpatient for chronic peripheral vascular disease with some superficial ulcerations. Local wound care is performed to the superficial ulceration to the right foot. The plan is have him continue to follow with Dr. Romo in his office. 02/09: Patient states that he is breathing better. He has multiple superficial ulcerations that will be followed in outpatient setting with Dr. Romo. Patient has indwelling catheter in place for urinary retention. Catheter to see in place for 14 days and follow-up with urology on outpatient. WBC 13.0, hemoglobin 8.5, potassium 2.7, BUN 31, creatinine 2.11, calcium 7.7. Chest x- ray shows stable bilateral infiltrate and small effusion, lateral view there is suggestion of a 1.4 cm retrosternal nodule. This is not seen on the recent ches t x-ray could be related to a superimposed structures. Recommend a follow-up PA and lateral view chest on a short-term basis. Review of Systems Constitutional: Reports fatigue, Denies anorexia, Denies chills, Denies fever, Denies poor appetite Eyes: denies blurred vision, denies pain Ears, nose, mouth and throat: Denies dysphagia, Denies headache, Denies nasal congestion, Denies nasal discharge, Denies sore throat, Denies vertigo Cardiovascular: Denies chest pain, Denies decreased exercise tolerance, Denies dyspnea on exertion, Denies edema, Denies lightheadedness, Denies shortness of breath, Denies syncope Respiratory: Reports cough, Reports dyspnea, Reports wheezing, Denies excessive sputum, Denies home oxygen Gastrointestinal: Denies abdominal pain, Denies diarrhea, Denies loss of frank etite, Denies nausea, Denies vomiting Genitourinary: Reports genital pain, Reports testicular pain, Reports urinary frequency, Reports urinary retention, Denies dysuria Musculoskeletal: Denies frequent falls, Denies gait dysfunction, Denies muscle weakness, Denies myalgias Integumentary: Reports wounds, Denies pruritus, Denies rash Neurological: Denies change in mentation, Denies change in speech, Denies numbness, Denies seizures, Denies weakness Psychiatric: Denies anxiety, Denies depression Endocrine: Denies fatigue, Denies weight change Objective - Vital Signs Vital signs: Vital Signs Temp 97.9 F 02/10/20 05:15 Pulse 101 H 02/10/20 08:49 Resp 19 02/10/20 05:15 BP 120/59 02/10/20 08:49 Pulse Ox 93 L 02/10/20 05:15 Intake & Output 02/09/20 02/10/20 02/10/20 18:59 06:59 18:59 Intake Total 540 340 Output Total 400 8425 Balance 140 -8085 Intake: Oral 540 340 Output: Urine 400 8425 Other: Voiding Method Indwelling Catheter - Exam Gen: This is a 69-year-old male. He is in bed and appears to be anxious and angry. HEENT: Head is atraumatic, normocephalic. Pupils equal, round. Sclerae is anicteric. NECK: Supple. No JVD. No lymphadenopathy. No thyromegaly. LUNGS: Expiratory wheezing, diminished in the bases. No intercostal retractions. HEART: Regular rate and rhythm. No murmur. ABDOMEN: Soft. Bowel sounds are present. No masses. No tenderness. Patient has significant scrotal edema. Dixon catheter draining bloody urine. EXTREMITIES: Left below the knee amputation with a scab at the stump. Right lower extremity has multiple vascular ulcers: 2 x 3.5 at the right dorsal foot distal fifth metatarsal, dry. Right great toe 2 x 2 with small amount of drainage. Lateral right great toe wound moist minimal drainage. 2 wounds on the pretibial area 1.5 x 1.5 and 3 x 2. Lateral wounds 5 cm x 1.5 and 3 x 2 cm. NEUROLOGICAL: Patient is awake, alert and oriented x3. Cranial nerves 2 through 12 are grossly intact. - Labs CBC & Chem 7: 02/10/20 05:34 02/10/20 05:34 Labs: Abnormal Lab Results - Last 24 Hours (Table) 02/09/20 02/09/20 02/09/20 Range/Units 11:25 16:37 21:57 WBC (3.8-10.6) k/uL RBC (4.30-5.90) m/uL Hgb (13.0-17.5) gm/dL Hct (39.0-53.0) % Neutrophils # (1.3-7.7) k/uL Lymphocytes # (1.0-4.8) k/uL Sodium (137-145) mmol/L Potassium (3.5-5.1) mmol/L Chloride (98-107) mmol/L Carbon Dioxide (22-30) mmol/L BUN (9-20) mg/dL Creatinine (0.66-1.25) mg/dL Glucose (74-99) mg/dL POC Glucose (mg/dL) 271 H 152 H 199 H (75-99) mg/dL Calcium (8.4-10.2) mg/dL 02/10/20 02/10/20 02/10/20 Range/Units 05:34 05:34 07:02 WBC 13.0 H (3.8-10.6) k/uL RBC 3.01 L (4.30-5.90) m/uL Hgb 8.5 L (13.0-17.5) gm/dL Hct 27.2 L (39.0-53.0) % Neutrophils # 12.1 H (1.3-7.7) k/uL Lymphocytes # 0.6 L (1.0-4.8) k/uL Sodium 134 L (137-145) mmol/L Potassium 2.7 L* (3.5-5.1) mmol/L Chloride 92 L (98-107) mmol/L Carbon Dioxide 34 H (22-30) mmol/L BUN 31 H (9-20) mg/dL Creatinine 2.11 H (0.66-1.25) mg/dL Glucose 185 H (74-99) mg/dL POC Glucose (mg/dL) 167 H (75-99) mg/dL Calcium 7.7 L (8.4-10.2) mg/dL Microbiology - Last 24 Hours (Table) 02/08/20 12:30 Gram Stain - Preliminary Leg - Right Wound Culture - Preliminary Gram Neg Bacilli 02/08/20 12:25 Urine Culture - Final Urine,Clean Catch Assessment and Plan Plan: 1. Right lower extremity vascular ulcers secondary peripheral vascular disease. Patient has been under the care of Dr. Romo in the past. Dr. Romo consult reviewed. Rocephin 2 g every 24 hours, blood cultures. 2. Difficulty breathing, without acute respiratory failure, secondary to COPD exacerbation and acute heart failure with bilateral pleural effusions left worse than right. Lasix 40 mg IV every 12 hours, cardiology consult appreciated, echocardiogram results: Moderate concentric left ventricular atrophy, EF between 55 and 60%, moderate to severe tricuspid regurgitation, moderate to severe pulmonary hypertension. Solu-Medrol 40 mg every 8 hours IV. Repeat chest x-ray in the morning 3. Peripheral vascular disease status post left below the knee amputation. 4. Urinary retention with hematuria and significant scrotal edema. Consult with urology appreciated. Continue Flomax or 0.5 mg twice daily. Patient to keep Dixon catheter for 14 days and follow-up in the office. PSA will be checked at that time. 5. Acute kidney injury with baseline creatinine of 2.2. Monitor renal function. 6. Hypokalemia. Repeat potassium in the morning, utilize potassium replacement protocol. 7. Chronic kidney disease stage, probable stage IIIB or 4. 8. Urinary tract infection. Urine culture to be obtained, Rocephin. 9. Tobacco use and dependence. Nicotine patch. 10. Alcohol abuse. CIWA protocol, thiamine daily and multivitamin. 11. Chronic pain syndrome under the care of Dr. Roberts. Continue [place] as needed. 12. History of prostate cancer. Follow up with urology. 13. Chronic nonhealing ulcerations to bilateral lower extremities. Continue local wound care with recommendations from Dr. Romo for honey gel. 14. Gastroesophageal reflux disease and GI prophylaxis. Protonix. DVT prophylaxis. Heparin subcu. Patient will be admitted to the hospital for a minimum of 2 night stay. Discharge plan: return home, possible tomorrow Impression and plan of care have been directed as dictated by the signing physician. Connie Banuelos nurse practitioner acting as scribe for signing physician. Additional CC's: Supa Arnold
[2020-02-10 12:04] VITALS: BMI 23.0
[2020-02-10 17:00] LABS: Glucose,Whole Blood 211 mg/dL (75-99)
[2020-02-10] MEDS: SODIUM CHLORIDE 0.9% 1,000 ML IV SCH (19:04)
[2020-02-10 20:13] LABS: Glucose,Whole Blood 189 mg/dL (75-99)
[2020-02-10 23:38] VITALS: RESP 20
[2020-02-11 06:30] VITALS: BP 151/84; PULSE 104; TEMP 98.4
[2020-02-11 07:20] LABS: Glucose,Whole Blood 124 mg/dL (75-99)
[2020-02-11] MEDS: INSULIN ASPART (NovoLOG) 100 UNIT/ML VIAL SQ SCH ×2 (07:25→12:27)
[2020-02-11] MEDS: NICOTINE 14MG/24HR PATCH TRANSDERM SCH (07:48)
[2020-02-11] MEDS: ATORVASTATIN 40 MG TAB PO SCH (07:48)
[2020-02-11] MEDS: PANTOPRAZOLE 40 MG TABLET PO SCH (07:48)
[2020-02-11] MEDS: FUROSEMIDE 40 MG TAB PO SCH (07:49)
[2020-02-11] MEDS: CHOLECALCIFEROL 1,000 UNIT TAB PO SCH (07:49)
[2020-02-11] MEDS: MULTIVITAMINS, THERA 1 EACH TAB PO SCH (07:50)
[2020-02-11] MEDS: METOPROLOL SUCCINATE (ER) 100 MG TAB.ER.24H PO SCH (07:50)
[2020-02-11] MEDS: TAMSULOSIN 0.4 MG CAP.ER.24H PO SCH (07:50)
[2020-02-11] MEDS: HEPARIN SODIUM,PORCINE 5,000 UNIT/ML 1 ML VIAL SQ SCH (07:50)
[2020-02-11] MEDS: GABAPENTIN 100 MG CAP PO SCH (07:50)
[2020-02-11] MEDS: predniSONE 20 MG TAB PO SCH (07:50)
[2020-02-11] MEDS: IPRATROPIUM-ALBUTEROL 3 ML NEB INHALATION SCH ×2 (07:52→11:16)
[2020-02-11] MEDS: BUDESONIDE 0.5 MG/2 ML NEBU INHALATION SCH (07:52)
[2020-02-11] MEDS: HYDROcodone/APAP 10-325MG 1 EACH TAB PO PRN (08:16)
[2020-02-11 09:43] LABS: Potassium 2.9 mmol/L (3.5-5.1)
[2020-02-11 12:24] LABS: Glucose,Whole Blood 123 mg/dL (75-99)
--- NOTE | 2020-02-11 13:33 | P.DS ---
Providers Date of admission: 02/07/20 19:04 Expected date of discharge: 02/11/20 Attending physician: Henrietta Shaw Consults: 02/07/20 18:05 Consult Physician Stat Consulting Provider: Yemi Hameed Consult Reason/Comments: phimosis Do you want consulting provider notified?: Already Contacted 02/07/20 19:05 Consult Physician Routine Consulting Provider: Maddison Henson Consult Reason/Comments: heart failure Do you want consulting provider notified?: Yes 02/08/20 09:28 Consult Physician Routine Consulting Provider: Luis F Romo Consult Reason/Comments: wounds, PVD Do you want consulting provider notified?: Yes Primary care physician: Supa Arnold [facility] Course: This is a 69-year-old male patient of Dr. Arnold (he has not seen in greater than 1 year) with past medical history of hypertension, hyperlipidemia, COPD, prostate cancer, peripheral vascular disease with previous left below the knee amputation and left stump wound, right lower extremity wounds. Patient has been in the wound center under the care of Dr. Romo in the past and has undergone left leg bypass. Patient continues to smoke at least 2 cigarettes per day and he also drinks 3 beers per day. Patient was recently seen January 07 at [facility] which time he was treated for urinary tract infection and peripheral vascular disease and discharged home on Augmentin. At that time his creatinine was 2.2 and hemoglobin 8.2. He has not followed up with Dr. Arnold since discharge nor any other physician. Patient complains of pain in his right foot as well as increasing testicular swelling and increasing shortness of breath. Patient utilizes inhalers and nebulizer treatments at home. He has not home O2 dependent. Patient is normally wheelchair bound. He does not utilize prosthesis. He is under the care of Dr. Roberts for pain management. Patient came into [facility] emergency center for evaluation. Chest x-ray shows moderately large left pleural effusion. Small right pleural effusion. WBC 8.0, hemoglobin 8.6, platelet count 365. Sodium 140, potassium 4.1, chloride 110, CO2 18, BUN 29 creatinine 2.76, proBNP 17,200, troponin 0.016 . Patient was seen in the ER by Dr. Hameed for urinary retention and difficulty placing Dixon catheter was placed with return of 3 L of yellow fluid. At the time of our evaluation, urine is blood tinged. Plan to keep Dixon in for 14 days and follow-up as an outpatient in 2 weeks. Patient was started on Flomax. 02/09/2020: Patient is resting sitting up in bed. In no acute distress. Patient continues to be on O2 via nasal cannula 2 L pulse oxing 97%, heart rate 124, blood pressure 154/52 remains afebrile. Patient continues to have an indwelling catheter in place related to retention. Continues to have 2+ pitting edema. Patient states that he is feeling better and having less shortness of breath. WC 9.3, hemoglobin 8.7, potassium 3.5, BUN 26, creatinine 2.42,. Patient is followed by Dr. Romo in the outpatient for chronic peripheral vascular disease with some superficial ulcerations. Local wound care is performed to the superficial ulceration to the right foot. The plan is have him continue to follow with Dr. Romo in his office. 02/09: Patient states that he is breathing better. He has multiple superficial ulcerations that will be followed in outpatient setting with Dr. Romo. Patient has indwelling catheter in place for urinary retention. Catheter to see in place for 14 days and follow-up with urology on outpatient. WBC 13.0, hemoglobin 8.5, potassium 2.7, BUN 31, creatinine 2.11, calcium 7.7. Chest x- ray shows stable bilateral infiltrate and small effusion, lateral view there is suggestion of a 1.4 cm retrosternal nodule. This is not seen on the recent chest x-ray could be related to a superimposed structures. Recommend a follow- up PA and lateral view chest on a short-term basis. 02/10: Patient has been afebrile, heart rate 104, blood pressure 151/84, pulse ox 95% on room air. Patient states that he has been sleeping most of the day. Repeat lab work revealed sodium 134, potassium 2.9, chloride 89, CO2 38, BUN 27 creatinine 1.54, blood sugar running between 123 and 164. Potassium will be replaced with 160 mEq of KCl. Repeat potassium level at 6 PM and if this is above 3.5, patient will be discharged home today. Dixon catheter is to be maintained and patient to follow up with urology in 1-2 weeks. Discharge diagnoses: 1. Right lower extremity vascular ulcers secondary peripheral vascular disease. 2. Difficulty breathing, without acute respiratory failure, secondary to COPD exacerbation and acute heart failure with bilateral pleural effusions left worse than right. 3. Peripheral vascular disease status post left below the knee amputation. 4. Urinary retention with hematuria and significant scrotal edema. 5. Acute kidney injury with baseline creatinine of 2.2. 6. Hypokalemia. 7. Chronic kidney disease stage, probable stage IIIB or 4. 8. Urinary tract infection. 9. Tobacco use and dependence. 10. Alcohol abuse. 11. Chronic pain syndrome under the care of Dr. Roberts. 12. History of prostate cancer. 13. Chronic nonhealing ulcerations to bilateral lower extremities. 14. Gastroesophageal reflux disease Discharge plan: return home Impression and plan of care have been directed as dictated by the signing physician. Shannan Ashby nurse practitioner acting as scribe for signing physician. Patient Condition at Discharge: Good Plan - Discharge Summary Discharge Rx Participant: No New Discharge Prescriptions: New predniSONE [Deltasone] 40 mg PO DAILY #14 tab Tamsulosin [Flomax] 0.4 mg PO BID #60 cap.er.24h Nicotine 14Mg/24Hr Patch [Habitrol] 1 patch TRANSDERM DAILY #30 patch Potassium Chloride ER [K-Dur 20] 20 meq PO DAILY #30 tab Cephalexin [Keflex] 500 mg PO Q8HR 6 Days #18 cap Furosemide [Lasix] 40 mg PO DAILY #30 tab Continue HYDROcodone/APAP 10-325MG [[place] 10-325] 1 tab PO QID PRN PRN Reason: Pain Gabapentin [Neurontin] 200 mg PO QAM Atorvastatin [Lipitor] 40 mg PO DAILY Cholecalciferol [Vitamin D3 (25 Mcg = 1000 Iu)] 2,000 unit PO DAILY Albuterol Sulfate [Proair Hfa] 1 - 2 puff INHALATION RT-Q6H PRN PRN Reason: Shortness Of Breath Multivitamins, Thera [Multivitamin (formulary)] 1 tab PO DAILY Metoprolol Succinate [Toprol XL] 50 mg PO DAILY Budesonide [Pulmicort] 0.5 mg INHALATION RT-BID Pantoprazole [Protonix] 40 mg PO AC-BID Discharge Medication List Atorvastatin [Lipitor] 40 mg PO DAILY 01/01/15 [History] Cholecalciferol [Vitamin D3 (25 Mcg = 1000 Iu)] 2,000 unit PO DAILY 01/01/15 [History] Gabapentin [Neurontin] 200 mg PO QAM 01/01/15 [History] HYDROcodone/APAP 10-325MG [Fertile 10-325] 1 tab PO QID PRN 01/01/15 [History] Albuterol Sulfate [Proair Hfa] 1 - 2 puff INHALATION RT-Q6H PRN 03/08/16 [History] Multivitamins, Thera [Multivitamin (formulary)] 1 tab PO DAILY 03/08/16 [History] Metoprolol Succinate [Toprol XL] 50 mg PO DAILY 05/17/16 [History] Budesonide [Pulmicort] 0.5 mg INHALATION RT-BID 02/08/20 [History] Pantoprazole [Protonix] 40 mg PO AC-BID 02/08/20 [History] Cephalexin [Keflex] 500 mg PO Q8HR 6 Days #18 cap 02/11/20 [Rx] Furosemide [Lasix] 40 mg PO DAILY #30 tab 02/11/20 [Rx] Nicotine 14Mg/24Hr Patch [Habitrol] 1 patch TRANSDERM DAILY #30 patch 02/11/20 [Rx] Potassium Chloride ER [K-Dur 20] 20 meq PO DAILY #30 tab 02/11/20 [Rx] Tamsulosin [Flomax] 0.4 mg PO BID #60 cap.er.24h 02/11/20 [Rx] predniSONE [Deltasone] 40 mg PO DAILY #14 tab 02/11/20 [Rx] Follow up Appointment(s)/Referral(s): Yemi Hameed MD [STAFF PHYSICIAN] - 2 Weeks (office wouldnt answer) Supa Arnold MD [Primary Care Provider] - 1 Week (office closed today) Luis F Romo MD [STAFF PHYSICIAN] - 02/14/20 11:30 am Toño Reveles MD [STAFF PHYSICIAN] - 02/25/20 3:45 pm Ambulatory/Diagnostic Orders: Basic Metabolic Panel [LAB.AMB] Location: None Selected Patient Instructions/Handouts: Chronic Wounds (DC), Shortness of Breath (DC) Activity/Diet/Wound Care/Special Instructions: Maintain Dixon catheter at discharge. [facility] in one week
[2020-02-11] MEDS ORDERED: POTASSIUM CHLORIDE ER 20 MEQ TAB.ER PO SCH (14:00)
[2020-02-12] MEDS ORDERED: FUROSEMIDE 40 MG TAB PO SCH (09:00)
== END 2020-02-11 14:15 | disposition home or self-care (01) | DRG 291 ==
LOC: EC 15:29 → 6NMEDSUR 19:04
PROVIDERS: ADMIT Family Medicine; ATTEND Family Medicine
DX: I13.0 Hypertensive heart and chronic kidney disease with heart failure and stage 1 through stage 4 chronic kidney disease, or unspecified chronic kidney disease (principal); I50.31 Acute diastolic (congestive) heart failure; E87.2 Acidosis; L03.115 Cellulitis of right lower limb; L97.929 Non-pressure chronic ulcer of unspecified part of left lower leg with unspecified severity; N17.9 Acute kidney failure, unspecified; N18.4 Chronic kidney disease, stage 4 (severe); N39.0 Urinary tract infection, site not specified; J44.1 Chronic obstructive pulmonary disease with (acute) exacerbation; F32.9 Major depressive disorder, single episode, unspecified; F41.9 Anxiety disorder, unspecified; G89.4 Chronic pain syndrome; I27.20 Pulmonary hypertension, unspecified; E78.5 Hyperlipidemia, unspecified; E87.6 Hypokalemia; F10.10 Alcohol abuse, uncomplicated; F17.210 Nicotine dependence, cigarettes, uncomplicated; I73.9 Peripheral vascular disease, unspecified; K21.9 Gastro-esophageal reflux disease without esophagitis; L97.519 Non-pressure chronic ulcer of other part of right foot with unspecified severity; R33.9 Retention of urine, unspecified; R31.9 Hematuria, unspecified; N47.1 Phimosis; N50.89 Other specified disorders of the male genital organs; R09.02 Hypoxemia; Z79.02 Long term (current) use of antithrombotics/antiplatelets; Z79.82 Long term (current) use of aspirin; Z79.899 Other long term (current) drug therapy; Z82.49 Family history of ischemic heart disease and other diseases of the circulatory system; Z85.46 Personal history of malignant neoplasm of prostate; Z99.3 Dependence on wheelchair; Z89.512 Acquired absence of left leg below knee; H93.19 Tinnitus, unspecified ear; H91.90 Unspecified hearing loss, unspecified ear; R00.0 Tachycardia, unspecified; Z79.51 Long term (current) use of inhaled steroids; Z87.440 Personal history of urinary (tract) infections
CPT/HCPCS: 36415; 51702; 51798; 71046; 76770; 80048; 80053; 81001; 83880; 84132; 84484; 85025; 85027; 85610; 85730; 87070; 87075; 87077; 87086; 87186; 87205; 93005; 93306; 94640; 96361; 96374; 99285

== ENCOUNTER 2021-11-13 10:53 | Emergency (ER) | payer MEDICARE, OTHER ==
[2021-11-13 11:14] VITALS: BP 180/111; PULSE 111; RESP 18; TEMP 98.7
--- NOTE | 2021-11-13 11:45 | ED ---
General Adult HPI - General Chief complaint: Extremity Injury, Upper Stated complaint: Fall/Backwards 4ft/head injury/4 days ago Time Seen by Provider: 11/13/21 11:15 Source: patient, RN notes reviewed Mode of arrival: wheelchair Limitations: physical limitation - History of Present Illness Initial comments: 70-year-old male presents to the emergency department for evaluation of issues with bilateral hands. Initially patient states he has numbness in both hands, onset 5 days ago after he fell out of his scooter. Upon further discussion, however patient states he has had decreased strength in his left hand with altered appearance of the fourth and fifth fingers over the course of the past several months. Patient states his hands are not as strong as they used to be and that his knuckles are enlarged. Describes his left hand as having a "crippled look." Reports stiffness and decreased function is worse in the morning and improves over the course of the day. When pressed for more details about his fall, patient states he was rolling backwards in his electric wheelchair down his ramp which failed to stop him as it usually does. Patient s tates he fell from a height of 3 feet and landed on his back and shoulders. States he does have some neck and upper back pain. Denies having been seen for evaluation after the fall occurred 5 days ago. Denies any loss of consciousness, head injury, headache, bleeding, chest discomfort, shortness of breath, or loss of bowel or bladder control. - Related Data Home Medications Medication Instructions Recorded Confirmed Atorvastatin [Lipitor] 40 mg PO DAILY 01/01/15 11/13/21 Cholecalciferol [Vitamin D3 (25 50 mcg PO DAILY 01/01/15 11/13/21 Mcg = 1000 Iu)] Gabapentin [Neurontin] 200 mg PO BID 01/01/15 11/13/21 Ascorbic Acid [Vitamin C] 1,000 mg PO DAILY 11/13/21 11/13/21 Metoprolol Succinate (ER) [Toprol 100 mg PO DAILY 11/13/21 11/13/21 Xl] Montelukast [Singulair] 10 mg PO DAILY 11/13/21 11/13/21 Potassium Gluconate [Potassium 99 mg PO DAILY 11/13/21 11/13/21 Gluconate ER] Tamsulosin [Flomax] 0.4 mg PO DAILY 11/13/21 11/13/21 traZODone HCL 50 mg PO HS PRN 11/13/21 11/13/21 Allergies Allergy/AdvReac Type Severity Reaction Status Date / Time No Known Allergies Allergy Verified 11/13/21 13:00 Review of Systems ROS Statement: Those systems with pertinent positive or pertinent negative responses have been documented in the HPI. ROS Other: All systems not noted in ROS Statement are negative. Past Medical History Past Medical History: COPD, Hyperlipidemia, Hypertension, Vascular Disorder Additional Past Medical History / Comment(s): LT. BKA, LEFT STUMP WOUND, HYPERBARIC OXYGEN TX (X 2) WHICH CAUSED HEARING PROBLEMS-, HAS HAD TINNITUS FOR 20 YEARS. , PT USES W/C & WALKER. History of Any Multi-Drug Resistant Organisms: None Reported Additional Past Surgical History / Comment(s): lt leg vascular bypass surgery; L below knee amp and then revision of left bka., hx of PICC line. Past Anesthesia/Blood Transfusion Reactions: No Reported Reaction Past Psychological History: Anxiety, Depression Past Alcohol Use History: Daily Past Drug Use History: None Reported - Past Family History Brother(s) Additional Family Medical History / Comment(s): Patient has 5 brothers all living, some have hypertension. Sister(s) Additional Family Medical History / Comment(s): Patient has one sister and no major medical problems. Patient has one daughter living in [place] with no major medical problems. Father Family Medical History: Coronary Artery Disease (CAD) Additional Family Medical History / Comment(s): Father heart disease age 47 from myocardial infarction. Mother Family Medical History: Hypertension Additional Family Medical History / Comment(s): Mother at age 82 from myocardial infarction. General Exam Limitations: physical limitation General appearance: alert, in no apparent distress (Well-developed, well- nourished male in no acute distress. Initial temperature 98.7, pulse 111, respirations 18, blood pressure 180/111, pulse ox 98% on room air.) Head exam: Present: atraumatic, normocephalic, normal inspection Eye exam: Present: normal appearance, PERRL, EOMI. Absent: scleral icterus, conjunctival injection, periorbital swelling Respiratory exam: Present: normal lung sounds bilaterally. Absent: respiratory distress, wheezes, rales, rhonchi, stridor Cardiovascular Exam: Present: regular rate, normal rhythm, normal heart sounds. Absent: systolic murmur, diastolic murmur, rubs, gallop, clicks GI/Abdominal exam: Present: soft, normal bowel sounds. Absent: distended, tenderness, guarding, rebound, rigid Right Shoulder Exam: Present: normal inspection, full ROM. Absent: tenderness, swelling, deformity, tenderness over AC joint Upper Arm exam: Present: normal inspection, full ROM. Absent: tenderness, deformity Elbow exam: Present: normal inspection, full ROM. Absent: tenderness, swelling, deformity Forearm Wrist exam: Present: normal inspection, full ROM. Absent: tenderness, swelling, deformity Hand Wrist exam: Present: full ROM, other (Enlarged PIP joints). Absent: tenderness, swelling Neuro motor exam: Present: thumb opposition intact, fingers 2-5 abduction intact, other (patient observed texting on his phone without difficulty; has strength and dexterity to remove rings) Neurosensory exam: Present: other (slightly diminished sensation to the 2nd and 3rd digits) Vascular: Present: normal capillary refill, radial pulse, ulnar pulse. Absent: vascular compromise, Pallo Left Shoulder Exam: Present: normal inspection, full ROM. Absent: tenderness, swelling, deformity, tenderness over AC joint Upper Arm exam: Present: normal inspection, full ROM. Absent: tenderness, swelling, deformity Elbow exam: Present: normal inspection, full ROM. Absent: tenderness, swelling Forearm Wrist exam: Present: normal inspection, full ROM. Absent: tenderness, swelling, deformity, tenderness over anatomical snuff box Hand Wrist exam: Present: swelling (uniform enlargement of PIP joints; 5th digit also has enlarged DIP join with boutonniere deformity). Absent: erythema Neuro motor exam: Present: thumb opposition intact, other (somewhat decreased abduction in digits three, four, and five; patient observed texting on his phone without difficulty; has strength and dexterity to remove rings) Neurosensory exam: Present: other (slightly diminished sensation in the first, second, and third digits.) Vascular: Present: normal capillary refill, radial pulse, ulnar pulse. Absent: vascular compromise, Pallo Back exam: Present: paraspinal tenderness (cervical tenderness), vertebral tenderness (mild vertebral tenderness elicited upon palpation of the cervical spine.) Neurological exam: Present: alert, oriented X3, CN II-XII intact Expanded Patient oriented to: Present: person, place, time Speech: Present: fluid speech Cranial nerves: EOM's Intact: Normal, Nystagmus: Normal, Facial Palsy with Forehead Movement: Normal Sensory exam: Upper Extremity Light Touch: Normal Motor strength exam: RUE: 4, LUE: 4 Eye Response: (4) open spontaneously Motor Response: (6) obeys commands Verbal Response: (5) oriented Psychiatric exam: Present: normal affect, normal mood Course Vital Signs 11/13/21 11:10 Temperature 98.7 F Pulse Rate 111 H Respiratory 18 Rate Blood Pressure 180/111 O2 Sat by Pulse 98 Oximetry - Reevaluation(s) Reevaluation #1: 11/13/21 13:40 Patient eloped prior to receiving discharge instructions and repeat set of vitals. Medical Decision Making - Medical Decision Making 70-year-old wheelchair-dependent male with a past medical history of peripheral vascular disease, left BKA, and decreased mobility presents to the emergency department for evaluation of bilateral hand numbness. Upon exam, patient is noted to have enlarged PIP joints uniformly and enlarged DIP joint on the fifth digit of the left hand with what appears to be an early boutonniere's deformity. Patient states he has decreased sensation in both hands, however upon evaluation minimal sensation changes present located in the first, second, and third digits of the right hand and second and third digits on the left hand. Strength and Range of motion are slightly decreased on the left side compared to the right. Dexterity and coordination is not tremendously effective as patient is able to remove his own rings, twist lid on a cup, and utilize his phone without difficulty. Patient does clarify that his symptoms are worse in the morning, however patient is concerned as he had a fall approximately a week ago. Did not injure his head but has had some ongoing neck and upper back discomfort. States Motrin helps with this pain. CT shows extensive degenerative cervical spine changes with no acute processes. X-ray shows interphalangeal joint space narrowing of bilateral hands. Patient's imaging and physical exam findings appear consistent with arthritic changes. This was discussed with patient; he was encouraged to engage in regular gentle range of motion exercises of affected areas, heat application, occasional use of Motrin, and anticipatory guidance on symptomatic management. Instructed to follow-up with his primary care provider for a recheck. Patient states he and his primary care doctor do not always see eye to eye therefore offered orthopedics or rheumatology as alternative suggestions. Return parameters were discussed in detail. Patient verbalizes understanding and agrees with this plan. This patient's care was discussed with my attending DR. Zendejas. - Radiology Data Radiology results: report reviewed, image reviewed CT of the brain and C-spine without contrast was obtained. Report was reviewed in its entirety. Impression per Dr. Garzon is there is no acute fracture or dislocation evident in the cervical spine. No acute intracranial hemorrhage or midline shift is seen. X-ray of bilateral hands was obtained. Report was reviewed in its entirety. Impression per Dr. Garzon is no acute fracture or dislocation in either hand. Disposition Clinical Impression: Arthritis of hand, left, Arthritis of hand, right Disposition: HOME SELF-CARE Condition: Stable Instructions (If sedation given, give patient instructions): Osteoarthritis (ED) Additional Instructions: Gentle Range of Motion exercise to affected areas as discussed. Apply heat to areas of discomfort. May take motrin if needed for pain. Follow-up with your primary care provider or orthopedics for further care. Return to the emergency department with any new, worsening, or concerning symptoms. Is patient prescribed a controlled substance at d/c from ED?: No Referrals: Henrietta Shaw MD [Primary Care Provider] - 1-2 days [facility] [Provider Group] - 1-2 days Time of Disposition: 13:31
--- NOTE | 2021-11-13 12:07 | XR ---
EXAMINATION TYPE: XR hand complete bilateral DATE OF EXAM: 11/13/2021 CLINICAL HISTORY: Bilateral pain after fall injury. TECHNIQUE: Frontal, lateral and oblique images of the bilateral hands are obtained. COMPARISON: None. FINDINGS: There is no acute fracture/dislocation evident in either hand. Mild narrowing throughout t he PIP and DIP joints of the phalanges bilaterally. Mild narrowing base of first metacarpals bilater ally. Suspect accessory sesamoid left hand near the pisiform. The overlying soft tissue appears unrem arkable bilaterally. IMPRESSION: There is no acute fracture or dislocation in either hand.
--- NOTE | 2021-11-13 12:34 | CT ---
EXAMINATION TYPE: CT brain cspine wo con DATE OF EXAM: 11/13/2021 COMPARISON: MRI brain March 25, 2016 HISTORY: Fall injury with headache and neck pain. CT DLP: 1445.9 mGycm. Automated Exposure Control for Dose Reduction was Utilized. TECHNIQUE: CT scan of the head and cervical spine are performed without contrast. FINDINGS: There is no acute intracranial hemorrhage or midline shift identified. Mild ventricular a nd sulcal prominence. Desouza-white matter differentiation fairly well maintained. The calvarium is inta ct. The globes are intact and the visualized sinuses are clear. Cervical spine is visualized in its entirety from C1 through upper thoracic levels and demonstrates s traightened alignment without evidence of acute fracture or dislocation. Prevertebral soft tissue ap pears within normal limits. The C1-C2 articulation is within normal limits on the coronal images. M oderate disc space narrowing with severe anterior spurring C4-C5 through the C6-C7 levels. Moderate d isc space narrowing C7-T1 level. Posterior spur disc complexes efface the anterior thecal sac at C5-C 6 and C6-C7 levels. Posterior disc herniation C3-C4 level effaces the anterior thecal sac correspondi ng to axial image 42. Axial images show multilevel uncovertebral facet degenerative changes causing multilevel fairly signi ficant bilateral neural foraminal narrowing. Thyroid gland appears within normal limits. Lung apices show emphysematous change without pneumothorax. IMPRESSION: 1. There is no acute fracture or dislocation evident in the cervical spine. 2. No acute intracranial hemorrhage or midline shift is seen.
== END 2021-11-13 13:45 | disposition home or self-care (01) ==
LOC: EC 10:53
DX: M19.042 Primary osteoarthritis, left hand (principal); M19.041 Primary osteoarthritis, right hand; J44.9 Chronic obstructive pulmonary disease, unspecified; I10 Essential (primary) hypertension; E78.5 Hyperlipidemia, unspecified; Z79.899 Other long term (current) drug therapy
CPT/HCPCS: 70450; 72125; 99284

== ENCOUNTER 2022-05-03 07:23 | Day surgery (SDC) | payer MEDICARE, OTHER ==
[~2022-05-03 07:23] MED LIST: ALPRAZolam 0.25 MG TAB PO PRN; ALPRAZolam 0.5 MG TAB PO PRN; ASPIRIN 325 MG TAB PO STA; NITROGLYCERIN SL TABS 0.4 MG TAB SUBLINGUAL PRN; SODIUM CHLORIDE 0.9% 1,000 ML in EMPTY BAG 1 BAG IV SCH
[2022-05-03] MEDS ORDERED: SODIUM CHLORIDE 0.9% 1,000 ML IV ONE (07:52)
[2022-05-03 08:02] VITALS: TEMP 97.1
[2022-05-03 08:15] LABS: Potassium 3.9 mmol/L (3.5-5.1)
[2022-05-03] MEDS ORDERED: VERAPAMIL 2.5 MG/ML 2 ML AMP ONE (08:32)
[2022-05-03] MEDS ORDERED: HEPARIN SODIUM 1,000 UN/ML (10ML VL) ONE (08:32)
[2022-05-03 08:42] LABS: Anisocytosis Slight; Basophils % (A) 0 %; Eosinophils # (A) 0.3 k/uL (0-0.7); Eosinophils % (A) 4 %; HCT 42.9 % (39.0-53.0); HGB 13.5 gm/dL (13.0-17.5); Hypochromasia Slight; Lymphocytes # (A) 1.2 k/uL (1.0-4.8); Lymphocytes % (A) 16 %; MCH 29.9 pg (25.0-35.0); MCHC 31.4 g/dL (31.0-37.0); MCV 95.2 fL (80.0-100.0); Mean Platelet Volume 7.4; Monocytes # (A) 0.4 k/uL (0-1.0); Monocytes % (A) 6 %; Neutrophils # (A) 5.1 k/uL (1.3-7.7); Neutrophils % (A) 72 %; Platelet Count 231 k/uL (150-450); RBC 4.51 m/uL (4.30-5.90); RDW 16.5 % (11.5-15.5)
[2022-05-03] MEDS ORDERED: fentaNYL (PF) 50 MCG/ML 2 ML AMP ONE (08:48)
[2022-05-03] MEDS ORDERED: fentaNYL (PF) 50 MCG/ML 2 ML AMP IV ONE (08:54)
[2022-05-03] MEDS ORDERED: MIDAZOLAM 2 MG/2 ML VIAL IV ONE (08:54)
[2022-05-03] MEDS ORDERED: LIDOCAINE 1% INJ 10MG/ML (5 ML VIAL-PF) SQ ONE (08:57)
[2022-05-03] MEDS ORDERED: VERAPAMIL SYRINGE (5 MG/10 ML) INTRAARTER ONE (09:00)
[2022-05-03] MEDS ORDERED: HEPARIN SODIUM 1,000 UN/ML (10ML VL) IV ONE (09:03)
[2022-05-03] MEDS ORDERED: IOPAMIDOL-370 125ML BTL INJ ONE ×2 (09:18)
[2022-05-03] MEDS ORDERED: IOPAMIDOL-250 100ML BTL INTRAARTER ONE (09:25)
[2022-05-03] MEDS ORDERED: IOPAMIDOL-370 100ML BTL INJ ONE (09:25)
--- NOTE | 2022-05-03 09:53 | P.CARDCATH ---
Description of Procedure: PROCEDURES PERFORMED: Left heart catheterization, bilateral coronary angiography, abdominal angiography with left lower extremity runoff INDICATION: Preoperative cardiovascular evaluation, new onset cardiomyopathy, PAD, critical limb ischemia CONSENT:I have discussed the risks, benefits and alternative therapies for the above-mentioned procedure and for both sedation/analgesia as well as necessary blood product administration, if indicated, as they pertain to this patient. The patient has indicated understanding and acceptance of the risks and procedures discussed. PROCEDURE: After the risks, benefits and alternatives of the above mentioned procedure explained in detail with the patient, informed consent was obtained. Patient was taken to the catheterization lab and prepped and draped in usual fashion. 1% lidocaine was used to anesthetize the right radial artery. A 6- [place]i sheath was placed in the right radial artery using modified Seldinger technique. Left coronary angiography was performed with a 5-[place] JL 3.5 catheter and right coronary angiography was performed with a 6-[place] AR2 catheter in various views. A 5-[place] FR5 catheter was inserted into the left ventricle and pressure measurements were obtained. Given critical limb ischemia and multiple prior interventions the decision was made to perform brief angiography of the left lower extremity to evaluate for any possible revascularization to improve healing. Therefore a pigtail was advanced since the abdominal aorta and abdominal angiography was performed. Next with a long super cross 150 cm catheter that was advanced into the left iliac artery, selective left angiography was performed. This showed on 100% stenosis of the SFA as well as 100% stenosis of the popliteal with poor flow to the stump with no significant interventional targets noted. The right radial sheath was removed and a TR band was placed with hemostasis achieved. The patient tolerated the procedure well. Patient was transported back to the post catheterization holding area in stable condition. Conscious Sedation: Patient was monitored under the direct supervision of vision of myself for conscious sedation using Versed and fentanyl for a total duration of 36 minutes HEMODYNAMICS: Aorta: 142/76 LV: 141/80, LVEDP 18 SELECTIVE CORONARY ARTERIOGRAPHY: LEFT MAIN: The left main is a large caliber vessel which trifurcates into the LAD, ramus and circumflex. There is 20% left main stenosis. LEFT ANTERIOR DESCENDING CORONARY ARTERY: LAD is a large caliber vessel which wraps around to the apex. There is mild 20% proximal LAD stenosis and then a more focal heavily calcified 50% mid LAD stenosis at the level of the diagonal 1 bifurcation. Otherwise there are mild luminal irregularities. There are robust [id number] collaterals to the RCA. RAMUS INTERMEDIUS: The ramus is a small to moderate caliber vessel with a proximal 40% stenosis. LEFT CIRCUMFLEX CORONARY ARTERY: Left circumflex is a moderate caliber vessel with mild proximal circumflex 20-30%. There are [id number] collaterals RIGHT CORONARY ARTERY: The right coronary artery is a large caliber vessel which gives off a PDA and PLV branch and is the dominant vessel. There is 100% proximal RCA stenosis. Abdominal aorta: The abdominal aorta has mild calcifcation. Renal arteries were not imaged. There is no significant dissection or aneurysm. There is no significant stenosis. Right lower extremity: Right common iliac artery: There is no significant stenosis. Right external iliac artery: There is no significant stenosis. Right internal iliac artery: There is no significant stenosis. Right common femoral artery: There is no significant stenosis. Right profunda: Not imaged Right SFA: Not imaged Left lower extremity: Left common iliac artery: There is no significant stenosis. Left external iliac artery: There is no significant stenosis. Left internal iliac artery: There is no significant stenosis. Left common femoral artery: There is no significant stenosis. Left profunda: There is 100% mid left profunda stenosis. Extensive collaterals. Left SFA: There is a long left SFA stents to the popliteal artery that is 100% occluded proximally. Left popliteal artery: There is 100% stenosis. FINAL IMPRESSION: 1. CAD as described above including 20% left main stenosis, 50% mid LAD stenosis, 40% ramus stenosis, 100% RCA stenosis with robust yvai-ha-jxtof collaterals. 2. Elevated left sided filling pressures 3. No significant inflow disease with long 100% left SFA stenosis and mid left profunda 100% stenosis. No significant interventional targets noted. PLAN: 1. Aggressive risk factor modification per most recent ACC/AHA guidelines. 2. Patient is at elevated risk for possible amputation however does have robust zxfo-ke-[id number] collaterals. 3. No significant interventional targets noted of the left lower extremity.
[2022-05-03 11:02] VITALS: RESP 16
--- NOTE | 2022-05-03 11:54 | IR ---
EXAMINATION TYPE: IR angio lower extremity LT DATE OF EXAM: 05/03/2022 COMPARISON: NONE HISTORY: Fluoroscopy time. Fluoroscopy was provided to the referring clinician.
[2022-05-03] MEDS ORDERED: ACETAMINOPHEN TAB 325 MG TAB ONE (13:00)
[2022-05-03 14:02] VITALS: BP 155/79; PULSE 104
== END 2022-05-03 14:50 | disposition home or self-care (01) ==
LOC: CATHCVL 07:23
PROVIDERS: ATTEND Internal Medicine
DX: I70.222 Atherosclerosis of native arteries of extremities with rest pain, left leg (principal); I70.92 Chronic total occlusion of artery of the extremities; I25.10 Atherosclerotic heart disease of native coronary artery without angina pectoris; I25.84 Coronary atherosclerosis due to calcified coronary lesion; I25.82 Chronic total occlusion of coronary artery; I42.9 Cardiomyopathy, unspecified; E78.5 Hyperlipidemia, unspecified; I13.0 Hypertensive heart and chronic kidney disease with heart failure and stage 1 through stage 4 chronic kidney disease, or unspecified chronic kidney disease; N18.9 Chronic kidney disease, unspecified; I50.22 Chronic systolic (congestive) heart failure; Z89.511 Acquired absence of right leg below knee; Z89.512 Acquired absence of left leg below knee; F17.210 Nicotine dependence, cigarettes, uncomplicated; Z82.49 Family history of ischemic heart disease and other diseases of the circulatory system; Z79.899 Other long term (current) drug therapy
CPT/HCPCS: 93458; 36246; 75625; 75710; 80048; 85025; 87635; C1894; C1887; J2250; J2001; J3010; J1644; Q9966; Q9967